=== PATIENT | male | born 1955 | race Caucasian/White ===

== ENCOUNTER 2019-05-21 23:39 | Inpatient (IN) | payer OTHER ==
[2019-05-22] MEDS ORDERED: ACETAMINOPHEN 325 MG TAB PO (00:30)
[2019-05-22] MEDS ORDERED: ONDANSETRON 4 MG INJ IV ×2 (00:30→03:30)
[2019-05-22] MEDS ORDERED: NACL 0.9% 3 ML SYG IV (00:30)
[2019-05-22] MEDS: LORAZEPAM 2 MG INJ IV (00:44)
[2019-05-22] MEDS: SOD CHLORIDE 0.9% 1,000 ML IV ×3 (00:45→16:10)
[2019-05-22 00:49] LABS: ADD MAN DIFF? NO
[2019-05-22 00:55] LABS: BASOPHIL # 0.1 10^3/ul (0.0-0.1); BASOPHILS % 0.4 % (0.0-2.0); EOSINOPHILS # 0.1 10^3/ul (0.0-0.5); EOSINOPHILS % 0.4 % (0.0-7.0); HEMATOCRIT 40.1 % (42.0-52.0); HEMOGLOBIN 12.7 g/dl (14.0-18.0); LYMPHOCYTES # 0.7 10^3/ul (0.8-2.9); LYMPHOCYTES % 6.3 % (15.0-51.0); MEAN CORPUSCULAR HEMOGLOBIN 26.2 pg (29.0-33.0); MEAN CORPUSCULAR HGB CONC 31.7 g/dl (32.0-37.0); MEAN CORPUSCULAR VOLUME 82.7 fl (82.0-101.0); MEAN PLATELET VOLUME 11.2 fl (7.4-10.4); MONOCYTE # 0.8 10^3/ul (0.3-0.9); MONOCYTES % 7.1 % (0.0-11.0); NEUTROPHIL # 9.6 10^3/ul (1.6-7.5); PLATELET COUNT 234 10^3/UL (140-415); RED BLOOD COUNT 4.85 10^6/ul (4.70-6.10); RED CELL DISTRIBUTION WIDTH 17.4 % (11.5-14.5)
[2019-05-22 00:55] LABS: WHITE BLOOD COUNT 11.3 10^3/ul (4.8-10.8)
[2019-05-22] MEDS ORDERED: IPRATROPIUM (NEB) 0.5 MG/2.5 ML AMP HHN (01:00)
[2019-05-22] MEDS ORDERED: LEVALBUTEROL (NEB) 1.25 MG/0.5 ML AMP HHN (01:00)
[2019-05-22 01:16] LABS: ALANINE AMINOTRANSFERASE 48 IU/L (13-69); ALBUMIN 3.8 g/dl (3.3-4.9); ALBUMIN/GLOBULIN RATIO 0.82; ALKALINE PHOSPHATASE 153 IU/L (42-121); ANION GAP 8 (5-13); ASPARTATE AMINO TRANSFERASE 83 IU/L (15-46); BILIRUBIN,INDIRECT 0.5 mg/dl (0-1.1); BILIRUBIN,TOTAL 0.5 mg/dl (0.2-1.3); BLOOD UREA NITROGEN 23 mg/dl (7-20); CALCIUM 9.1 mg/dl (8.4-10.2); CARBON DIOXIDE 28 mmol/L (21-31); CHLORIDE 100 mmol/L (97-110); CREATININE 0.69 mg/dl (0.61-1.24); Estimated GFR > 60 mL/min (>60); GLUCOSE 136 mg/dl (70-220); MAGNESIUM 1.6 mg/dl (1.7-2.5); POTASSIUM 4.2 mmol/L (3.5-5.1); SODIUM 136 mmol/L (135-144); TOTAL PROTEIN 8.4 g/dl (6.1-8.1)
[2019-05-22] MEDS ORDERED: ACETAMINOPHEN 650MG/20.3ML CUP (01:19)
[2019-05-22] MEDS: ACETAMINOPHEN 650MG/20.3ML CUP GTB ×2 (01:32→22:03)
[2019-05-22 01:35] LABS: HEMOGLOBIN A1C 8.4 % (0-5.9)
[2019-05-22 01:52] LABS: LACTIC ACID 1.5 mmol/L (0.5-2.0)
[2019-05-22 02:15] LABS: OCCULT BLOOD STOOL NEGATIVE (NEGATIVE)
[2019-05-22 02:26] LABS: ADD UMIC YES; UR ASCORBIC ACID NEGATIVE (NEGATIVE); UR BACTERIA FEW /HPF (NONE SEEN); UR BILIRUBIN (Dip) NEGATIVE (NEGATIVE); UR BLOOD (Dip) 1+ mg/dL (NEGATIVE); UR CLARITY SLIGHTLY CLOUDY (CLEAR); UR COLOR AMBER (YELLOW); UR GLUCOSE (Dip) NEGATIVE (NEGATIVE); UR KETONES (Dip) NEGATIVE (NEGATIVE); UR LEUKOCYTE ESTERASE (Dip) 3+ Leu/ul (NEGATIVE); UR NITRITE (Dip) NEGATIVE (NEGATIVE); UR RBC 27 /HPF (0-5); UR SPECIFIC GRAVITY (Dip) 1.025 (1.003-1.030); UR TOTAL PROTEIN (Dip) 1+ mg/dl (NEGATIVE); UR UROBILINOGEN (Dip) 2+ mg/dL (NEGATIVE); UR WBC 152 /HPF (0-5)
[2019-05-22] MEDS ORDERED: GLUCOSE GEL 15 GRAM TUBE BUCCAL (02:30)
[2019-05-22] MEDS ORDERED: VANCOMYCIN IV PER PHARMACY XX (02:30)
[2019-05-22] MEDS ORDERED: GLUCOSE GEL 15 GRAM TUBE PO ×2 (02:30)
[2019-05-22] MEDS ORDERED: GLUCAGON 1 MG INJ IM (02:30)
[2019-05-22] MEDS ORDERED: DEXTROSE 50% 50 ML SYRINGE IV ×2 (02:30)
[2019-05-22] MEDS: IBUPROFEN 600 MG TAB GTB (02:32)
[2019-05-22 02:54] LABS: AADO2 Arterial 165.1 mmHg (7.0-24.0); Allen Test ACCEPTAB; Arterial Base Excess 0.2 mmol/L (-3.0-3); Arterial Blood Gas Oxygen Sat 96.7 mmHG (95.0-98.0); Arterial COHb 0.4 % (0.0-3.0); Arterial Fraction of Oxyhgb 95.9 % (93.0-99.0); Arterial HCO3 22.8 mmol/L (22.0-26.0); Arterial MetHb 0.4 % (0.0-1.5); Arterial pCO2 31.5 mmhg (35-45); MODE TRACH COLLAR; Site Right Radial
[2019-05-22] MEDS: PIPER-TAZO 3.375 GM IV (PMX) 100 ML IVPB ×5 (03:25→17:05)
[2019-05-22 04:01] LABS: VALPROATE 36 ug/ml (50-100)
[2019-05-22] MEDS: INSULIN ASPART [NOVOLOG] 3 ML PEN SC ×5 (05:00→21:00)
[2019-05-22] MEDS: MAGNESIUM SULFATE 3 GM in DEXTROSE 5% 100 ML IVPB (05:57)
[2019-05-22] MEDS ORDERED: INSULIN ASPART [NOVOLOG] 3 ML PEN SC (07:35)
[2019-05-22] MEDS: METOPROLOL 25 MG TAB GTB ×3 (07:57→22:01)
[2019-05-22] MEDS: VALPROIC ACID LIQUID CUP 250 MG/5 ML CUP GTB ×3 (08:12→22:00)
[2019-05-22] MEDS: ACETAMINOPHEN 325 MG TAB GTB ×3 (08:12→16:33)
[2019-05-22] MEDS: VANCOMYCIN 1.5 GM/NS 250 ML 250 ML IVPB (08:54)
[2019-05-22] MEDS: BENZTROPINE 1 MG TAB GTB ×2 (08:54→21:58)
[2019-05-22 08:56] LABS: LACTIC ACID 1.6 mmol/L (0.5-2.0)
[2019-05-22] MEDS: ENOXAPARIN 40 MG/0.4 ML SYG SC (09:14)
[2019-05-22] MEDS: FUROSEMIDE 40 MG INJ IV (12:34)
[2019-05-22] MEDS: CLOTRIMAZOLE 1% 30 GM CR TOP ×2 (12:43→22:00)
[2019-05-22] MEDS: MAGNESIUM SULFATE 1 GM/D5W 100 ML IVPB (14:54)
[2019-05-22] MEDS ORDERED: VANCOMYCIN 1 GM 250 ML IVPB (15:00)
[2019-05-22] MEDS: QUETIAPINE 25 MG TAB PO (21:59)
[2019-05-22] MEDS: VANCOMYCIN 1 GM 250 ML IVPB (21:59)
[2019-05-22] MEDS ORDERED: SPECIAL NON-STANDARD MEDICATION IV (22:00)
[2019-05-22] MEDS: SODIUM CHLORIDE IVPB (23:21)
[2019-05-22] MEDS: FLUCONAZOLE IVPB (23:21)
[2019-05-23] MEDS: PIPER-TAZO 3.375 GM IV (PMX) 100 ML IVPB ×3 (00:49→11:57)
[2019-05-23] MEDS: INSULIN ASPART [NOVOLOG] 3 ML PEN SC ×6 (00:57→21:34)
[2019-05-23] MEDS: ACCU-CHEK XX (02:00)
[2019-05-23] MEDS: SOD CHLORIDE 0.9% 1,000 ML IV ×2 (04:43→21:22)
[2019-05-23] MEDS: VALPROIC ACID LIQUID CUP 250 MG/5 ML CUP GTB ×3 (05:43→21:24)
[2019-05-23] MEDS: METOPROLOL 25 MG TAB GTB ×3 (05:44→21:23)
[2019-05-23 06:00] LABS: ADD MAN DIFF? NO
[2019-05-23 06:08] LABS: WHITE BLOOD COUNT 14.1 10^3/ul (4.8-10.8)
[2019-05-23 06:08] LABS: BASOPHILS % 0.2 % (0.0-2.0); EOSINOPHILS # 0.1 10^3/ul (0.0-0.5); HEMATOCRIT 37.1 % (42.0-52.0); HEMOGLOBIN 11.5 g/dl (14.0-18.0); LYMPHOCYTES # 0.8 10^3/ul (0.8-2.9); LYMPHOCYTES % 5.8 % (15.0-51.0); MEAN CORPUSCULAR HEMOGLOBIN 25.7 pg (29.0-33.0); MEAN PLATELET VOLUME 11.1 fl (7.4-10.4); MONOCYTES % 7.4 % (0.0-11.0); NEUTROPHIL # 11.9 10^3/ul (1.6-7.5); NEUTROPHILS % 84.7 % (39.0-77.0); PLATELET COUNT 224 10^3/UL (140-415); RED BLOOD COUNT 4.47 10^6/ul (4.70-6.10)
[2019-05-23 06:24] LABS: INR 1.22; PROTIME 15.5 Sec (11.9-14.9); PT RATIO 1.2
[2019-05-23 06:25] LABS: PARTIAL THROMBOPLASTIN TIME 38.2 Sec (23.0-35.0)
[2019-05-23 06:45] LABS: ALANINE AMINOTRANSFERASE 47 IU/L (13-69); ALBUMIN 2.8 g/dl (3.3-4.9); ALBUMIN/GLOBULIN RATIO 0.71; ALKALINE PHOSPHATASE 130 IU/L (42-121); ANION GAP 6 (5-13); ASPARTATE AMINO TRANSFERASE 59 IU/L (15-46); BILIRUBIN,INDIRECT 0.6 mg/dl (0-1.1); BILIRUBIN,TOTAL 0.6 mg/dl (0.2-1.3); BLOOD UREA NITROGEN 26 mg/dl (7-20); CALCIUM 8.4 mg/dl (8.4-10.2); CARBON DIOXIDE 30 mmol/L (21-31); CHLORIDE 105 mmol/L (97-110); CREATININE 0.91 mg/dl (0.61-1.24); Estimated GFR > 60 mL/min (>60); GLUCOSE 184 mg/dl (70-220); MAGNESIUM 2.4 mg/dl (1.7-2.5); POTASSIUM 3.5 mmol/L (3.5-5.1); SODIUM 141 mmol/L (135-144); TOTAL PROTEIN 6.7 g/dl (6.1-8.1)
[2019-05-23] MEDS: HALOPERIDOL 5 MG INJ IM (08:00)
[2019-05-23] MEDS: QUETIAPINE 25 MG TAB PO ×2 (08:58→21:23)
[2019-05-23] MEDS: BENZTROPINE 1 MG TAB GTB ×2 (08:58→21:23)
[2019-05-23] MEDS: ENOXAPARIN 40 MG/0.4 ML SYG SC (09:00)
[2019-05-23] MEDS: FLUCONAZOLE 400 MG/NS (PMX) 200 ML IVPB (09:01)
[2019-05-23] MEDS: VANCOMYCIN 1 GM 250 ML IVPB (09:01)
[2019-05-23] MEDS: CLOTRIMAZOLE 1% 30 GM CR TOP ×2 (09:02→21:24)
[2019-05-23] MEDS: SOD CHLORIDE 0.9% 250 ML IV (10:54)
[2019-05-23] MEDS: ACETAMINOPHEN 650MG/20.3ML CUP GTB (13:20)
[2019-05-24] MEDS: INSULIN ASPART [NOVOLOG] 3 ML PEN SC ×6 (01:19→20:45)
[2019-05-24] MEDS: ACCU-CHEK XX (02:00)
[2019-05-24] MEDS: VALPROIC ACID LIQUID CUP 250 MG/5 ML CUP GTB ×3 (05:25→21:15)
[2019-05-24] MEDS: METOPROLOL 25 MG TAB GTB ×3 (05:25→21:18)
[2019-05-24 05:43] LABS: ADD MAN DIFF? NO
[2019-05-24 05:50] LABS: BASOPHILS % 0.2 % (0.0-2.0); EOSINOPHILS # 0.9 10^3/ul (0.0-0.5); EOSINOPHILS % 8.9 % (0.0-7.0); HEMATOCRIT 32.7 % (42.0-52.0); HEMOGLOBIN 10.1 g/dl (14.0-18.0); LYMPHOCYTES # 0.9 10^3/ul (0.8-2.9); MEAN CORPUSCULAR HEMOGLOBIN 26.2 pg (29.0-33.0); MEAN CORPUSCULAR HGB CONC 30.9 g/dl (32.0-37.0); MEAN CORPUSCULAR VOLUME 84.7 fl (82.0-101.0); MEAN PLATELET VOLUME 11.4 fl (7.4-10.4); MONOCYTE # 0.9 10^3/ul (0.3-0.9); MONOCYTES % 8.5 % (0.0-11.0); NEUTROPHIL # 7.4 10^3/ul (1.6-7.5); NEUTROPHILS % 72.8 % (39.0-77.0); PLATELET COUNT 193 10^3/UL (140-415); RED BLOOD COUNT 3.86 10^6/ul (4.70-6.10); RED CELL DISTRIBUTION WIDTH 18.3 % (11.5-14.5)
[2019-05-24 05:50] LABS: WHITE BLOOD COUNT 10.1 10^3/ul (4.8-10.8)
[2019-05-24 06:10] LABS: ANION GAP 5 (5-13); BILIRUBIN,TOTAL 0.2 mg/dl (0.2-1.3); Estimated GFR > 60 mL/min (>60)
[2019-05-24 06:12] LABS: ALANINE AMINOTRANSFERASE 43 IU/L (13-69); ALBUMIN 2.9 g/dl (3.3-4.9); ALKALINE PHOSPHATASE 156 IU/L (42-121); ASPARTATE AMINO TRANSFERASE 55 IU/L (15-46); BILIRUBIN,INDIRECT 0.2 mg/dl (0-1.1); BLOOD UREA NITROGEN 20 mg/dl (7-20); CALCIUM 8.7 mg/dl (8.4-10.2); CARBON DIOXIDE 31 mmol/L (21-31); CHLORIDE 107 mmol/L (97-110); CREATININE 0.67 mg/dl (0.61-1.24); GLUCOSE 160 mg/dl (70-220); POTASSIUM 3.6 mmol/L (3.5-5.1); SODIUM 143 mmol/L (135-144); TOTAL PROTEIN 6.5 g/dl (6.1-8.1)
[2019-05-24] MEDS: BENZTROPINE 1 MG TAB GTB ×2 (08:50→20:47)
[2019-05-24] MEDS: QUETIAPINE 25 MG TAB PO ×2 (08:50→20:47)
[2019-05-24] MEDS: FLUCONAZOLE 400 MG/NS (PMX) 200 ML IVPB (08:51)
[2019-05-24] MEDS: ENOXAPARIN 40 MG/0.4 ML SYG SC (08:53)
[2019-05-24] MEDS: CLOTRIMAZOLE 1% 30 GM CR TOP ×2 (08:54→20:48)
[2019-05-24] MEDS: SOD CHLORIDE 0.9% 1,000 ML IV ×2 (08:55→17:09)
[2019-05-24] MEDS: ACETAMINOPHEN 650MG/20.3ML CUP GTB (14:14)
[2019-05-24] MEDS: ACETAMINOPHEN 325 MG TAB GTB (20:46)
[2019-05-24] MEDS: LORAZEPAM 2 MG INJ IV (21:17)
[2019-05-25] MEDS: INSULIN ASPART [NOVOLOG] 3 ML PEN SC ×6 (01:27→20:43)
[2019-05-25] MEDS: ACCU-CHEK XX (02:00)
[2019-05-25 05:34] LABS: ADD MAN DIFF? NO
[2019-05-25] MEDS: VALPROIC ACID LIQUID CUP 250 MG/5 ML CUP GTB ×3 (05:37→22:16)
[2019-05-25] MEDS: METOPROLOL 25 MG TAB GTB ×3 (05:38→22:16)
[2019-05-25 05:57] LABS: BASOPHILS % 0.2 % (0.0-2.0); EOSINOPHILS # 0.4 10^3/ul (0.0-0.5); HEMATOCRIT 32.7 % (42.0-52.0); LYMPHOCYTES # 0.9 10^3/ul (0.8-2.9); LYMPHOCYTES % 11.2 % (15.0-51.0); MEAN CORPUSCULAR HEMOGLOBIN 25.7 pg (29.0-33.0); MEAN CORPUSCULAR HGB CONC 30.6 g/dl (32.0-37.0); MEAN CORPUSCULAR VOLUME 84.1 fl (82.0-101.0); MEAN PLATELET VOLUME 12.3 fl (7.4-10.4); MONOCYTE # 0.7 10^3/ul (0.3-0.9); MONOCYTES % 8.7 % (0.0-11.0); NEUTROPHIL # 6.2 10^3/ul (1.6-7.5); NEUTROPHILS % 74.4 % (39.0-77.0); PLATELET COUNT 202 10^3/UL (140-415); RED BLOOD COUNT 3.89 10^6/ul (4.70-6.10); RED CELL DISTRIBUTION WIDTH 18.1 % (11.5-14.5)
[2019-05-25 05:57] LABS: WHITE BLOOD COUNT 8.3 10^3/ul (4.8-10.8)
[2019-05-25 06:14] LABS: ALANINE AMINOTRANSFERASE 65 IU/L (13-69); ALBUMIN/GLOBULIN RATIO 0.83; ALKALINE PHOSPHATASE 348 IU/L (42-121); ANION GAP 7 (5-13); ASPARTATE AMINO TRANSFERASE 103 IU/L (15-46); BILIRUBIN,INDIRECT 0.3 mg/dl (0-1.1); BILIRUBIN,TOTAL 0.4 mg/dl (0.2-1.3); BLOOD UREA NITROGEN 12 mg/dl (7-20); CALCIUM 8.8 mg/dl (8.4-10.2); CARBON DIOXIDE 33 mmol/L (21-31); CHLORIDE 104 mmol/L (97-110); CREATININE 0.58 mg/dl (0.61-1.24); Estimated GFR > 60 mL/min (>60); GLUCOSE 146 mg/dl (70-220); POTASSIUM 3.4 mmol/L (3.5-5.1); SODIUM 144 mmol/L (135-144); TOTAL PROTEIN 6.6 g/dl (6.1-8.1)
[2019-05-25] MEDS: ACETAMINOPHEN 650MG/20.3ML CUP GTB ×2 (08:49→20:13)
[2019-05-25] MEDS: QUETIAPINE 25 MG TAB PO (08:49)
[2019-05-25] MEDS: BENZTROPINE 1 MG TAB GTB ×2 (08:49→20:10)
[2019-05-25] MEDS: ENOXAPARIN 40 MG/0.4 ML SYG SC (08:57)
[2019-05-25] MEDS: CLOTRIMAZOLE 1% 30 GM CR TOP ×2 (09:01→20:12)
[2019-05-25] MEDS: FLUCONAZOLE 400 MG/NS (PMX) 200 ML IVPB (09:01)
[2019-05-25] MEDS: POTASSIUM CHLORIDE 20 MEQ POWDER FOR ORAL SOLN GTB (15:24)
[2019-05-25] MEDS ORDERED: VANCOMYCIN IV PER PHARMACY XX (15:30)
[2019-05-25] MEDS: VANCOMYCIN 1.5 GM/NS 250 ML 250 ML IVPB (17:25)
[2019-05-25] MEDS: CEFEPIME 1GM/50 ML (PMX) 50 ML IVPB (20:11)
[2019-05-25] MEDS: QUETIAPINE 25 MG TAB PEG (20:11)
[2019-05-26] MEDS: INSULIN ASPART [NOVOLOG] 3 ML PEN SC ×6 (01:29→20:48)
[2019-05-26] MEDS: ACCU-CHEK XX (01:30)
[2019-05-26] MEDS: VALPROIC ACID LIQUID CUP 250 MG/5 ML CUP GTB ×3 (05:23→21:31)
[2019-05-26] MEDS: VANCOMYCIN 1 GM 250 ML IVPB ×2 (05:24→17:24)
[2019-05-26] MEDS: METOPROLOL 25 MG TAB GTB ×2 (05:24→20:30)
[2019-05-26 06:34] LABS: ADD MAN DIFF? NO
[2019-05-26 06:54] LABS: BASOPHILS % 0.3 % (0.0-2.0); EOSINOPHILS # 0.1 10^3/ul (0.0-0.5); EOSINOPHILS % 0.9 % (0.0-7.0); HEMATOCRIT 36.1 % (42.0-52.0); LYMPHOCYTES # 1.4 10^3/ul (0.8-2.9); LYMPHOCYTES % 10.8 % (15.0-51.0); MEAN CORPUSCULAR HEMOGLOBIN 25.3 pg (29.0-33.0); MEAN CORPUSCULAR HGB CONC 30.5 g/dl (32.0-37.0); MEAN CORPUSCULAR VOLUME 83.2 fl (82.0-101.0); MEAN PLATELET VOLUME 12.6 fl (7.4-10.4); MONOCYTE # 1.1 10^3/ul (0.3-0.9); MONOCYTES % 8.4 % (0.0-11.0); NEUTROPHIL # 10.3 10^3/ul (1.6-7.5); NEUTROPHILS % 78.5 % (39.0-77.0); PLATELET COUNT 181 10^3/UL (140-415); POSITIVE DIFF @See below; RED BLOOD COUNT 4.34 10^6/ul (4.70-6.10); RED CELL DISTRIBUTION WIDTH 18.4 % (11.5-14.5)
[2019-05-26 06:54] LABS: WHITE BLOOD COUNT 13.1 10^3/ul (4.8-10.8)
[2019-05-26 07:15] LABS: ALANINE AMINOTRANSFERASE 83 IU/L (13-69); ALBUMIN 3.4 g/dl (3.3-4.9); ALKALINE PHOSPHATASE 438 IU/L (42-121); ANION GAP 8 (5-13); ASPARTATE AMINO TRANSFERASE 102 IU/L (15-46); BILIRUBIN,INDIRECT 0.4 mg/dl (0-1.1); BILIRUBIN,TOTAL 0.6 mg/dl (0.2-1.3); BLOOD UREA NITROGEN 12 mg/dl (7-20); CALCIUM 9.5 mg/dl (8.4-10.2); CARBON DIOXIDE 34 mmol/L (21-31); CHLORIDE 105 mmol/L (97-110); CREATININE 0.68 mg/dl (0.61-1.24); Estimated GFR > 60 mL/min (>60); GLUCOSE 225 mg/dl (70-220); POTASSIUM 3.4 mmol/L (3.5-5.1); SODIUM 147 mmol/L (135-144); TOTAL PROTEIN 7.6 g/dl (6.1-8.1)
[2019-05-26] MEDS: BENZTROPINE 1 MG TAB GTB ×2 (09:51→20:31)
[2019-05-26] MEDS: QUETIAPINE 25 MG TAB PEG ×2 (09:51→20:31)
[2019-05-26] MEDS: CEFEPIME 1GM/50 ML (PMX) 50 ML IVPB ×2 (09:52→20:29)
[2019-05-26] MEDS: FLUCONAZOLE 400 MG/NS (PMX) 200 ML IVPB (09:52)
[2019-05-26] MEDS: ENOXAPARIN 40 MG/0.4 ML SYG SC (10:08)
[2019-05-26] MEDS: ACETAMINOPHEN 650MG/20.3ML CUP GTB ×2 (10:13→20:29)
[2019-05-26 11:37] LABS: LACTIC ACID 1.5 mmol/L (0.5-2.0)
[2019-05-26] MEDS: LOPERAMIDE HCL 1 MG/5 ML LIQUID (10 ML UD CUP) GTB (15:28)
[2019-05-26] MEDS: FOLIC ACID 1 MG TAB GTB (15:28)
[2019-05-26] MEDS: CLOTRIMAZOLE 1% 30 GM CR TOP ×2 (15:28→20:32)
[2019-05-26] MEDS: THIAMINE 100 MG TAB GTB (15:28)
[2019-05-26] MEDS: CASPOFUNGIN 70 MG in SOD CHLORIDE 0.9% 250 ML IVPB (16:14)
[2019-05-26 17:17] LABS: ADD UMIC YES; UR ASCORBIC ACID 40 mg/dL (NEGATIVE); UR BILIRUBIN (Dip) NEGATIVE (NEGATIVE); UR BLOOD (Dip) 1+ mg/dL (NEGATIVE); UR CLARITY CLEAR (CLEAR); UR COLOR AMBER (YELLOW); UR GLUCOSE (Dip) 2+ mg/dL (NEGATIVE); UR KETONES (Dip) NEGATIVE (NEGATIVE); UR LEUKOCYTE ESTERASE (Dip) 1+ Leu/ul (NEGATIVE); UR NITRITE (Dip) NEGATIVE (NEGATIVE); UR RBC 5 /HPF (0-5); UR SPECIFIC GRAVITY (Dip) 1.014 (1.003-1.030); UR TOTAL PROTEIN (Dip) 1+ mg/dl (NEGATIVE); UR UROBILINOGEN (Dip) 2+ mg/dL (NEGATIVE); UR WBC 16 /HPF (0-5)
[2019-05-27] MEDS: INSULIN ASPART [NOVOLOG] 3 ML PEN SC ×6 (01:35→21:46)
[2019-05-27] MEDS: ACCU-CHEK XX (02:33)
[2019-05-27] MEDS: VALPROIC ACID LIQUID CUP 250 MG/5 ML CUP GTB ×3 (05:34→21:25)
[2019-05-27 05:53] LABS: ADD MAN DIFF? NO
[2019-05-27 05:58] LABS: WHITE BLOOD COUNT 11.7 10^3/ul (4.8-10.8)
[2019-05-27 05:58] LABS: ABNORMAL IP MESSAGE 1; BASOPHILS % 0.3 % (0.0-2.0); EOSINOPHILS # 0.2 10^3/ul (0.0-0.5); EOSINOPHILS % 1.6 % (0.0-7.0); HEMATOCRIT 36.2 % (42.0-52.0); HEMOGLOBIN 10.9 g/dl (14.0-18.0); LYMPHOCYTES # 1.4 10^3/ul (0.8-2.9); LYMPHOCYTES % 11.6 % (15.0-51.0); MEAN CORPUSCULAR HEMOGLOBIN 25.5 pg (29.0-33.0); MEAN CORPUSCULAR HGB CONC 30.1 g/dl (32.0-37.0); MEAN CORPUSCULAR VOLUME 84.8 fl (82.0-101.0); MEAN PLATELET VOLUME 13.1 fl (7.4-10.4); MONOCYTE # 0.8 10^3/ul (0.3-0.9); NEUTROPHIL # 9.3 10^3/ul (1.6-7.5); NEUTROPHILS % 78.9 % (39.0-77.0); PLATELET COUNT 187 10^3/UL (140-415); POSITIVE DIFF @See below; RED BLOOD COUNT 4.27 10^6/ul (4.70-6.10); RED CELL DISTRIBUTION WIDTH 18.9 % (11.5-14.5)
[2019-05-27 06:24] LABS: ANION GAP 6 (5-13); BLOOD UREA NITROGEN 18 mg/dl (7-20); CARBON DIOXIDE 32 mmol/L (21-31); CHLORIDE 109 mmol/L (97-110); Estimated GFR > 60 mL/min (>60); GLUCOSE 201 mg/dl (70-220); POTASSIUM 4.3 mmol/L (3.5-5.1); SODIUM 147 mmol/L (135-144)
[2019-05-27 06:48] LABS: VANCOMYCIN,TROUGH 8.2 ug/ml (10.0-20.0)
[2019-05-27] MEDS: VANCOMYCIN 1 GM 250 ML IVPB (06:58)
[2019-05-27] MEDS: BENZTROPINE 1 MG TAB GTB ×2 (08:28→21:25)
[2019-05-27] MEDS: ACETAMINOPHEN 650MG/20.3ML CUP GTB (08:30)
[2019-05-27] MEDS: THIAMINE 100 MG TAB GTB (08:31)
[2019-05-27] MEDS: CLOTRIMAZOLE 1% 30 GM CR TOP ×2 (08:31→21:32)
[2019-05-27] MEDS: QUETIAPINE 25 MG TAB PEG ×2 (08:31→21:26)
[2019-05-27] MEDS: CEFEPIME 1GM/50 ML (PMX) 50 ML IVPB ×2 (08:31→21:25)
[2019-05-27] MEDS: METOPROLOL 25 MG TAB GTB ×2 (08:31→21:26)
[2019-05-27] MEDS: FOLIC ACID 1 MG TAB GTB (08:31)
[2019-05-27] MEDS: ENOXAPARIN 40 MG/0.4 ML SYG SC (08:54)
[2019-05-27 16:02] LABS: VITAMIN B1 (THIAMINE) 216 nmol/L (78-185)
[2019-05-27] MEDS: CASPOFUNGIN 50 MG in SOD CHLORIDE 0.9% 250 ML IVPB (16:42)
[2019-05-27] MEDS: metroNIDAZOLE 500 MG TAB PO ×2 (16:42→21:26)
[2019-05-27] MEDS: VANCOMYCIN 1.25 GM/NS 250 ML 250 ML IVPB (17:53)
[2019-05-28] MEDS: INSULIN ASPART [NOVOLOG] 3 ML PEN SC ×6 (02:00→21:05)
[2019-05-28] MEDS: ACCU-CHEK XX (02:00)
[2019-05-28] MEDS: metroNIDAZOLE 500 MG TAB PO ×3 (05:47→21:01)
[2019-05-28] MEDS: VALPROIC ACID LIQUID CUP 250 MG/5 ML CUP GTB ×3 (05:47→21:01)
[2019-05-28] MEDS: VANCOMYCIN 1.25 GM/NS 250 ML 250 ML IVPB ×2 (05:47→17:51)
[2019-05-28 06:49] LABS: ADD MAN DIFF? NO
[2019-05-28 06:54] LABS: WHITE BLOOD COUNT 11.9 10^3/ul (4.8-10.8)
[2019-05-28 06:54] LABS: BASOPHILS % 0.3 % (0.0-2.0); EOSINOPHILS # 0.5 10^3/ul (0.0-0.5); EOSINOPHILS % 4.5 % (0.0-7.0); HEMATOCRIT 35.3 % (42.0-52.0); HEMOGLOBIN 10.6 g/dl (14.0-18.0); LYMPHOCYTES # 1.4 10^3/ul (0.8-2.9); LYMPHOCYTES % 11.5 % (15.0-51.0); MEAN CORPUSCULAR HEMOGLOBIN 25.7 pg (29.0-33.0); MEAN CORPUSCULAR VOLUME 85.7 fl (82.0-101.0); MEAN PLATELET VOLUME 12.4 fl (7.4-10.4); MONOCYTE # 0.9 10^3/ul (0.3-0.9); MONOCYTES % 7.3 % (0.0-11.0); NEUTROPHILS % 75.9 % (39.0-77.0); PLATELET COUNT 352 10^3/UL (140-415); RED BLOOD COUNT 4.12 10^6/ul (4.70-6.10); RED CELL DISTRIBUTION WIDTH 18.9 % (11.5-14.5)
[2019-05-28 07:26] LABS: ANION GAP 5 (5-13); BLOOD UREA NITROGEN 22 mg/dl (7-20); CALCIUM 9.4 mg/dl (8.4-10.2); CARBON DIOXIDE 36 mmol/L (21-31); CHLORIDE 112 mmol/L (97-110); CREATININE 1.05 mg/dl (0.61-1.24); Estimated GFR > 60 mL/min (>60); GLUCOSE 271 mg/dl (70-220); SODIUM 153 mmol/L (135-144)
[2019-05-28] MEDS: CEFEPIME 1GM/50 ML (PMX) 50 ML IVPB ×2 (09:14→20:49)
[2019-05-28] MEDS: FOLIC ACID 1 MG TAB GTB (09:15)
[2019-05-28] MEDS: THIAMINE 100 MG TAB GTB (09:15)
[2019-05-28] MEDS: POTASSIUM CHLORIDE 20 MEQ POWDER FOR ORAL SOLN GTB ×2 (09:15→14:26)
[2019-05-28] MEDS: BENZTROPINE 1 MG TAB GTB ×2 (09:15→20:46)
[2019-05-28] MEDS: metFORMIN 500 MG TAB GTB ×2 (09:15→20:48)
[2019-05-28] MEDS: QUETIAPINE 25 MG TAB PEG ×2 (09:15→20:46)
[2019-05-28] MEDS: CLOTRIMAZOLE 1% 30 GM CR TOP ×2 (09:16→20:48)
[2019-05-28] MEDS: METOPROLOL 25 MG TAB GTB ×2 (09:16→20:46)
[2019-05-28] MEDS: ENOXAPARIN 40 MG/0.4 ML SYG SC (10:09)
[2019-05-28] MEDS ORDERED: POTASSIUM CHLORIDE (SR) 20 MEQ TAB PO (13:23)
[2019-05-28] MEDS: LORAZEPAM 2 MG INJ IV (14:23)
[2019-05-28] MEDS: CASPOFUNGIN 50 MG in SOD CHLORIDE 0.9% 250 ML IVPB (15:48)
[2019-05-29] MEDS: LORAZEPAM 2 MG INJ IV ×5 (00:09→23:13)
[2019-05-29] MEDS: INSULIN ASPART [NOVOLOG] 3 ML PEN SC ×6 (00:51→20:59)
[2019-05-29] MEDS: ACCU-CHEK XX (01:01)
[2019-05-29] MEDS: VANCOMYCIN 1.25 GM/NS 250 ML 250 ML IVPB (05:14)
[2019-05-29] MEDS: VALPROIC ACID LIQUID CUP 250 MG/5 ML CUP GTB ×3 (05:17→21:01)
[2019-05-29] MEDS: metroNIDAZOLE 500 MG TAB PO ×3 (05:20→21:01)
[2019-05-29 05:39] LABS: ADD MAN DIFF? NO
[2019-05-29 05:46] LABS: BASOPHILS % 0.4 % (0.0-2.0); EOSINOPHILS # 0.4 10^3/ul (0.0-0.5); EOSINOPHILS % 3.4 % (0.0-7.0); HEMOGLOBIN 10.4 g/dl (14.0-18.0); LYMPHOCYTES # 1.9 10^3/ul (0.8-2.9); LYMPHOCYTES % 17.1 % (15.0-51.0); MEAN CORPUSCULAR HEMOGLOBIN 25.9 pg (29.0-33.0); MEAN CORPUSCULAR HGB CONC 29.7 g/dl (32.0-37.0); MEAN CORPUSCULAR VOLUME 87.3 fl (82.0-101.0); MEAN PLATELET VOLUME 12.1 fl (7.4-10.4); MONOCYTES % 8.8 % (0.0-11.0); NEUTROPHIL # 7.7 10^3/ul (1.6-7.5); NEUTROPHILS % 69.3 % (39.0-77.0); PLATELET COUNT 466 10^3/UL (140-415); RED BLOOD COUNT 4.01 10^6/ul (4.70-6.10); RED CELL DISTRIBUTION WIDTH 18.6 % (11.5-14.5)
[2019-05-29 05:46] LABS: WHITE BLOOD COUNT 11.1 10^3/ul (4.8-10.8)
[2019-05-29 06:29] LABS: ANION GAP 4 (5-13); BLOOD UREA NITROGEN 30 mg/dl (7-20); CALCIUM 10.2 mg/dl (8.4-10.2); CARBON DIOXIDE 38 mmol/L (21-31); CHLORIDE 121 mmol/L (97-110); CREATININE 1.41 mg/dl (0.61-1.24); Estimated GFR 51 mL/min (>60); GLUCOSE 303 mg/dl (70-220); MAGNESIUM 2.3 mg/dl (1.7-2.5); POTASSIUM 3.1 mmol/L (3.5-5.1)
[2019-05-29 06:31] LABS: VANCOMYCIN,TROUGH 16.9 ug/ml (10.0-20.0)
[2019-05-29 06:59] LABS: SODIUM 163 mmol/L (135-144)
[2019-05-29] MEDS: DEXTROSE 5% 1,000 ML IV (08:13)
[2019-05-29] MEDS: QUETIAPINE 25 MG TAB PEG ×2 (08:14→20:50)
[2019-05-29] MEDS: metFORMIN 500 MG TAB GTB ×2 (08:14→20:49)
[2019-05-29] MEDS: BENZTROPINE 1 MG TAB GTB ×2 (08:14→20:49)
[2019-05-29] MEDS: METOPROLOL 25 MG TAB GTB (08:16)
[2019-05-29] MEDS: FOLIC ACID 1 MG TAB GTB (08:17)
[2019-05-29] MEDS: CEFEPIME 1GM/50 ML (PMX) 50 ML IVPB (08:17)
[2019-05-29] MEDS: THIAMINE 100 MG TAB GTB (08:17)
[2019-05-29] MEDS: CLOTRIMAZOLE 1% 30 GM CR TOP ×2 (08:18→20:51)
[2019-05-29] MEDS: ENOXAPARIN 40 MG/0.4 ML SYG SC (08:25)
[2019-05-29] MEDS: ACETAMINOPHEN 325 MG TAB GTB (08:41)
[2019-05-29] MEDS: CASPOFUNGIN 50 MG in SOD CHLORIDE 0.9% 250 ML IVPB (15:49)
[2019-05-29] MEDS: POTASSIUM CHLORIDE (SR) 20 MEQ TAB PO (15:51)
[2019-05-29] MEDS: METOPROLOL 50 MG TAB GTB ×2 (17:55→23:26)
[2019-05-29] MEDS: ACETAMINOPHEN 650MG/20.3ML CUP GTB (20:38)
[2019-05-29] MEDS: INSULIN GLARGINE [LANTus] (100 UNITS/ML) SYG SC (20:59)
[2019-05-29] MEDS ORDERED: VANCOMYCIN 750 MG (PMX) 250 ML IVPB (22:00)
[2019-05-30] MEDS: INSULIN ASPART [NOVOLOG] 3 ML PEN SC ×6 (01:19→21:00)
[2019-05-30] MEDS: ACCU-CHEK XX (02:00)
[2019-05-30] MEDS: DEXTROSE 5% 1,000 ML IV (03:30)
[2019-05-30] MEDS: metroNIDAZOLE 500 MG TAB PO ×3 (05:14→22:05)
[2019-05-30] MEDS: VALPROIC ACID LIQUID CUP 250 MG/5 ML CUP GTB ×3 (05:14→22:04)
[2019-05-30] MEDS: ACETAMINOPHEN 650MG/20.3ML CUP GTB (05:15)
[2019-05-30] MEDS: ENOXAPARIN 100 MG/ML SYG SC (05:26)
[2019-05-30 06:12] LABS: ADD MAN DIFF? NO
[2019-05-30 06:22] LABS: BASOPHIL # 0.1 10^3/ul (0.0-0.1); BASOPHILS % 0.4 % (0.0-2.0); EOSINOPHILS # 0.4 10^3/ul (0.0-0.5); EOSINOPHILS % 3.6 % (0.0-7.0); HEMATOCRIT 35.3 % (42.0-52.0); HEMOGLOBIN 10.4 g/dl (14.0-18.0); LYMPHOCYTES % 15.9 % (15.0-51.0); MEAN CORPUSCULAR HGB CONC 29.5 g/dl (32.0-37.0); MEAN CORPUSCULAR VOLUME 88.3 fl (82.0-101.0); MEAN PLATELET VOLUME 12.1 fl (7.4-10.4); MONOCYTES % 7.7 % (0.0-11.0); NEUTROPHIL # 8.9 10^3/ul (1.6-7.5); NEUTROPHILS % 71.8 % (39.0-77.0); PLATELET COUNT 514 10^3/UL (140-415); RED CELL DISTRIBUTION WIDTH 18.9 % (11.5-14.5)
[2019-05-30 06:22] LABS: WHITE BLOOD COUNT 12.4 10^3/ul (4.8-10.8)
[2019-05-30 06:55] LABS: ANION GAP 5 (5-13); BLOOD UREA NITROGEN 38 mg/dl (7-20); CALCIUM 10.3 mg/dl (8.4-10.2); CARBON DIOXIDE 38 mmol/L (21-31); CHLORIDE 123 mmol/L (97-110); CREATININE 1.68 mg/dl (0.61-1.24); Estimated GFR 42 mL/min (>60); GLUCOSE 244 mg/dl (70-220); POTASSIUM 3.4 mmol/L (3.5-5.1)
[2019-05-30 07:04] LABS: SODIUM 166 mmol/L (135-144)
[2019-05-30] MEDS: THIAMINE 100 MG TAB GTB (09:42)
[2019-05-30] MEDS: QUETIAPINE 25 MG TAB PEG ×2 (09:42→22:01)
[2019-05-30] MEDS: METOPROLOL 50 MG TAB GTB ×3 (09:42→22:00)
[2019-05-30] MEDS: FOLIC ACID 1 MG TAB GTB (09:42)
[2019-05-30] MEDS: BENZTROPINE 1 MG TAB GTB ×2 (09:43→22:08)
[2019-05-30] MEDS: DOXYCYCLINE 100 MG TAB PO ×2 (09:51→22:01)
[2019-05-30] MEDS: metFORMIN 500 MG TAB GTB ×2 (09:51→21:59)
[2019-05-30] MEDS: CLOTRIMAZOLE 1% 30 GM CR TOP ×2 (09:52→22:04)
[2019-05-30] MEDS: SOD CHLORIDE 0.45% 1,000 ML IV (14:37)
[2019-05-30 15:17] LABS: ANION GAP 4 (5-13); BLOOD UREA NITROGEN 40 mg/dl (7-20); CALCIUM 10.2 mg/dl (8.4-10.2); CARBON DIOXIDE 37 mmol/L (21-31); CHLORIDE 124 mmol/L (97-110); CREATININE 1.85 mg/dl (0.61-1.24); Estimated GFR 37 mL/min (>60); GLUCOSE 205 mg/dl (70-220); POTASSIUM 3.4 mmol/L (3.5-5.1)
[2019-05-30 15:21] LABS: SODIUM 165 mmol/L (135-144)
[2019-05-30 15:53] LABS: ADD UMIC YES; UR ASCORBIC ACID 40 mg/dL (NEGATIVE); UR BACTERIA FEW /HPF (NONE SEEN); UR BILIRUBIN (Dip) NEGATIVE (NEGATIVE); UR BLOOD (Dip) 3+ mg/dL (NEGATIVE); UR CLARITY SLIGHTLY CLOUDY (CLEAR); UR COLOR YELLOW (YELLOW); UR GLUCOSE (Dip) NEGATIVE (NEGATIVE); UR KETONES (Dip) NEGATIVE (NEGATIVE); UR LEUKOCYTE ESTERASE (Dip) 1+ Leu/ul (NEGATIVE); UR MUCUS FEW /HPF (NONE SEEN); UR NITRITE (Dip) NEGATIVE (NEGATIVE); UR RBC 29 /HPF (0-5); UR SPECIFIC GRAVITY (Dip) 1.012 (1.003-1.030); UR TOTAL PROTEIN (Dip) NEGATIVE (NEGATIVE); UR UROBILINOGEN (Dip) NEGATIVE (NEGATIVE); UR WBC 9 /HPF (0-5)
[2019-05-30 16:00] LABS: SODIUM,URINE RANDOM 23 mmol/L (30-90)
[2019-05-30 16:00] LABS: CREATININE,URINE RANDOM 65.77 mg/dl (20-370)
[2019-05-30 16:49] LABS: OSMOLALITY,URINE 356 mOsm/kg (250-1200)
[2019-05-30] MEDS: CASPOFUNGIN 50 MG in SOD CHLORIDE 0.9% 250 ML IVPB (16:53)
[2019-05-30] MEDS: POTASSIUM CHLORIDE 20 MEQ POWDER FOR ORAL SOLN GTB (16:53)
[2019-05-30] MEDS: INSULIN GLARGINE [LANTus] (100 UNITS/ML) SYG SC (21:57)
[2019-05-31] MEDS: INSULIN ASPART [NOVOLOG] 3 ML PEN SC ×6 (01:00→20:44)
[2019-05-31] MEDS: ACCU-CHEK XX (02:00)
[2019-05-31] MEDS: SOD CHLORIDE 0.45% 1,000 ML IV ×4 (05:29→21:48)
[2019-05-31] MEDS: ENOXAPARIN 100 MG/ML SYG SC (06:33)
[2019-05-31] MEDS: VALPROIC ACID LIQUID CUP 250 MG/5 ML CUP GTB ×3 (06:37→21:48)
[2019-05-31] MEDS: metroNIDAZOLE 500 MG TAB PO ×3 (06:38→21:48)
[2019-05-31] MEDS: FOLIC ACID 1 MG TAB GTB (09:09)
[2019-05-31] MEDS: DOXYCYCLINE 100 MG TAB PO ×2 (09:09→20:38)
[2019-05-31] MEDS: QUETIAPINE 25 MG TAB PEG ×2 (09:09→20:39)
[2019-05-31] MEDS: THIAMINE 100 MG TAB GTB (09:10)
[2019-05-31] MEDS: METOPROLOL 50 MG TAB GTB ×3 (09:11→20:40)
[2019-05-31] MEDS: BENZTROPINE 1 MG TAB GTB ×2 (09:11→20:38)
[2019-05-31] MEDS: CLOTRIMAZOLE 1% 30 GM CR TOP ×2 (09:11→20:40)
[2019-05-31] MEDS: metFORMIN 500 MG TAB GTB ×2 (09:11→20:40)
[2019-05-31 11:59] LABS: ADD MAN DIFF? NO
[2019-05-31 12:11] LABS: WHITE BLOOD COUNT 11.5 10^3/ul (4.8-10.8)
[2019-05-31 12:11] LABS: BASOPHILS % 0.3 % (0.0-2.0); EOSINOPHILS # 0.8 10^3/ul (0.0-0.5); EOSINOPHILS % 6.7 % (0.0-7.0); HEMATOCRIT 33.1 % (42.0-52.0); HEMOGLOBIN 9.6 g/dl (14.0-18.0); LYMPHOCYTES # 1.7 10^3/ul (0.8-2.9); LYMPHOCYTES % 14.8 % (15.0-51.0); MEAN CORPUSCULAR VOLUME 89.7 fl (82.0-101.0); MEAN PLATELET VOLUME 11.9 fl (7.4-10.4); MONOCYTE # 0.7 10^3/ul (0.3-0.9); MONOCYTES % 6.3 % (0.0-11.0); NEUTROPHIL # 8.2 10^3/ul (1.6-7.5); NEUTROPHILS % 71.6 % (39.0-77.0); PLATELET COUNT 472 10^3/UL (140-415); RED BLOOD COUNT 3.69 10^6/ul (4.70-6.10); RED CELL DISTRIBUTION WIDTH 18.9 % (11.5-14.5)
[2019-05-31 12:21] LABS: ALANINE AMINOTRANSFERASE 26 IU/L (13-69); ALBUMIN 3.2 g/dl (3.3-4.9); ALBUMIN/GLOBULIN RATIO 0.76; ALKALINE PHOSPHATASE 197 IU/L (42-121); ANION GAP 3 (5-13); ASPARTATE AMINO TRANSFERASE 18 IU/L (15-46); BILIRUBIN,INDIRECT 0.1 mg/dl (0-1.1); BILIRUBIN,TOTAL 0.1 mg/dl (0.2-1.3); BLOOD UREA NITROGEN 42 mg/dl (7-20); CALCIUM 9.5 mg/dl (8.4-10.2); CARBON DIOXIDE 38 mmol/L (21-31); CHLORIDE 123 mmol/L (97-110); Estimated GFR 39 mL/min (>60); GLUCOSE 136 mg/dl (70-220); POTASSIUM 3.3 mmol/L (3.5-5.1); TOTAL PROTEIN 7.4 g/dl (6.1-8.1)
[2019-05-31 12:30] LABS: SODIUM 164 mmol/L (135-144)
[2019-05-31] MEDS: DESMOPRESSIN 4 MCG INJ IV (13:47)
[2019-05-31] MEDS: CASPOFUNGIN 50 MG in SOD CHLORIDE 0.9% 250 ML IVPB (16:10)
[2019-05-31] MEDS: POTASSIUM CHLORIDE 20 MEQ POWDER FOR ORAL SOLN GTB (18:16)
[2019-05-31] MEDS: INSULIN GLARGINE [LANTus] (100 UNITS/ML) SYG SC (20:44)
[2019-05-31] MEDS: LORAZEPAM 0.5 MG TAB PO (20:51)
[2019-06-01] MEDS: INSULIN ASPART [NOVOLOG] 3 ML PEN SC ×6 (01:16→21:00)
[2019-06-01] MEDS: ACCU-CHEK XX (02:00)
[2019-06-01] MEDS: ENOXAPARIN 100 MG/ML SYG SC (05:21)
[2019-06-01] MEDS: metroNIDAZOLE 500 MG TAB PO ×3 (05:38→21:06)
[2019-06-01] MEDS: VALPROIC ACID LIQUID CUP 250 MG/5 ML CUP GTB ×3 (05:38→21:06)
[2019-06-01] MEDS: SOD CHLORIDE 0.45% 1,000 ML IV (05:38)
[2019-06-01 06:12] LABS: ADD MAN DIFF? NO
[2019-06-01 06:18] LABS: WHITE BLOOD COUNT 8.7 10^3/ul (4.8-10.8)
[2019-06-01 06:18] LABS: BASOPHILS % 0.3 % (0.0-2.0); EOSINOPHILS # 0.7 10^3/ul (0.0-0.5); HEMATOCRIT 33.9 % (42.0-52.0); HEMOGLOBIN 9.9 g/dl (14.0-18.0); LYMPHOCYTES # 1.3 10^3/ul (0.8-2.9); MEAN CORPUSCULAR HEMOGLOBIN 26.2 pg (29.0-33.0); MEAN CORPUSCULAR HGB CONC 29.2 g/dl (32.0-37.0); MEAN CORPUSCULAR VOLUME 89.7 fl (82.0-101.0); MEAN PLATELET VOLUME 11.9 fl (7.4-10.4); MONOCYTE # 0.6 10^3/ul (0.3-0.9); MONOCYTES % 6.9 % (0.0-11.0); NEUTROPHILS % 69.5 % (39.0-77.0); PLATELET COUNT 355 10^3/UL (140-415); RED BLOOD COUNT 3.78 10^6/ul (4.70-6.10); RED CELL DISTRIBUTION WIDTH 18.9 % (11.5-14.5)
[2019-06-01 06:36] LABS: MAGNESIUM 2.1 mg/dl (1.7-2.5)
[2019-06-01 06:36] LABS: PHOSPHORUS 4.7 mg/dl (2.5-4.9)
[2019-06-01 06:41] LABS: ANION GAP 1 (5-13); BLOOD UREA NITROGEN 38 mg/dl (7-20); CALCIUM 8.8 mg/dl (8.4-10.2); CARBON DIOXIDE 39 mmol/L (21-31); CHLORIDE 119 mmol/L (97-110); CREATININE 1.64 mg/dl (0.61-1.24); Estimated GFR 43 mL/min (>60); GLUCOSE 194 mg/dl (70-220); SODIUM 159 mmol/L (135-144)
[2019-06-01 06:54] LABS: POTASSIUM 3.4 mmol/L (3.5-5.1)
[2019-06-01] MEDS: POTASSIUM CHLORIDE 20 MEQ POWDER FOR ORAL SOLN GTB (09:23)
[2019-06-01] MEDS: FOLIC ACID 1 MG TAB GTB (09:24)
[2019-06-01] MEDS: BENZTROPINE 1 MG TAB GTB ×2 (09:24→20:50)
[2019-06-01] MEDS: METOPROLOL 50 MG TAB GTB ×3 (09:24→20:51)
[2019-06-01] MEDS: QUETIAPINE 25 MG TAB PEG ×2 (09:25→20:50)
[2019-06-01] MEDS: THIAMINE 100 MG TAB GTB (09:26)
[2019-06-01] MEDS: DOXYCYCLINE 100 MG TAB PO ×2 (09:26→20:50)
[2019-06-01] MEDS: DESMOPRESSIN 4 MCG INJ IV ×2 (09:27→20:50)
[2019-06-01] MEDS: metFORMIN 500 MG TAB GTB ×2 (09:29→20:50)
[2019-06-01] MEDS: CLOTRIMAZOLE 1% 30 GM CR TOP ×2 (09:29→21:05)
[2019-06-01] MEDS: LORAZEPAM 0.5 MG TAB PO ×2 (11:30→16:25)
[2019-06-01 14:44] LABS: ANION GAP 2 (5-13); BLOOD UREA NITROGEN 32 mg/dl (7-20); CALCIUM 8.9 mg/dl (8.4-10.2); CARBON DIOXIDE 39 mmol/L (21-31); CHLORIDE 115 mmol/L (97-110); CREATININE 1.41 mg/dl (0.61-1.24); Estimated GFR 51 mL/min (>60); GLUCOSE 250 mg/dl (70-220); POTASSIUM 3.7 mmol/L (3.5-5.1); SODIUM 156 mmol/L (135-144)
[2019-06-01] MEDS: CASPOFUNGIN 50 MG in SOD CHLORIDE 0.9% 250 ML IVPB (16:24)
[2019-06-01] MEDS: INSULIN GLARGINE [LANTus] (100 UNITS/ML) SYG SC (21:00)
[2019-06-02] MEDS: ACCU-CHEK XX (01:20)
[2019-06-02] MEDS: INSULIN ASPART [NOVOLOG] 3 ML PEN SC ×6 (01:20→21:15)
[2019-06-02] MEDS: VALPROIC ACID LIQUID CUP 250 MG/5 ML CUP GTB ×3 (05:19→21:12)
[2019-06-02] MEDS: metroNIDAZOLE 500 MG TAB PO ×3 (05:19→21:12)
[2019-06-02 05:27] LABS: ADD MAN DIFF? NO
[2019-06-02] MEDS: ENOXAPARIN 100 MG/ML SYG SC (05:29)
[2019-06-02 05:31] LABS: ABNORMAL IP MESSAGE 1; BASOPHILS % 0.2 % (0.0-2.0); EOSINOPHILS # 0.8 10^3/ul (0.0-0.5); EOSINOPHILS % 8.2 % (0.0-7.0); HEMATOCRIT 33.5 % (42.0-52.0); HEMOGLOBIN 9.6 g/dl (14.0-18.0); LYMPHOCYTES # 1.3 10^3/ul (0.8-2.9); LYMPHOCYTES % 13.6 % (15.0-51.0); MEAN CORPUSCULAR HEMOGLOBIN 25.3 pg (29.0-33.0); MEAN CORPUSCULAR HGB CONC 28.7 g/dl (32.0-37.0); MEAN CORPUSCULAR VOLUME 88.4 fl (82.0-101.0); MEAN PLATELET VOLUME 12.1 fl (7.4-10.4); MONOCYTE # 0.7 10^3/ul (0.3-0.9); NEUTROPHIL # 6.8 10^3/ul (1.6-7.5); NEUTROPHILS % 70.6 % (39.0-77.0); PLATELET COUNT 356 10^3/UL (140-415); POSITIVE DIFF @See below; RED BLOOD COUNT 3.79 10^6/ul (4.70-6.10); RED CELL DISTRIBUTION WIDTH 18.2 % (11.5-14.5)
[2019-06-02 05:31] LABS: WHITE BLOOD COUNT 9.6 10^3/ul (4.8-10.8)
[2019-06-02 05:44] LABS: Allen Test ACCEPTAB; Arterial Base Excess 12.2 mmol/L (-3.0-3); Arterial Blood Gas Oxygen Sat 75.5 mmHG (95.0-98.0); Arterial COHb 0.5 % (0.0-3.0); Arterial HCO3 38.7 mmol/L (22.0-26.0); Arterial MetHb 0.2 % (0.0-1.5); Arterial pCO2 60.2 mmhg (35-45); MODE COOL AEROSOL T/M; Site Right Radial
[2019-06-02 06:37] LABS: BLOOD UREA NITROGEN 31 mg/dl (7-20); CALCIUM 9.4 mg/dl (8.4-10.2); CHLORIDE 116 mmol/L (97-110); CREATININE 1.28 mg/dl (0.61-1.24); Estimated GFR 57 mL/min (>60); GLUCOSE 177 mg/dl (70-220); POTASSIUM 3.3 mmol/L (3.5-5.1); SODIUM 156 mmol/L (135-144)
[2019-06-02 07:14] LABS: ANION GAP 4 (5-13)
[2019-06-02 07:17] LABS: CARBON DIOXIDE 36 mmol/L (21-31)
[2019-06-02 08:08] LABS: AADO2 Arterial 276.4 mmHg (7.0-24.0); Allen Test ACCEPTAB; Arterial Base Excess 11.8 mmol/L (-3.0-3); Arterial Blood Gas Oxygen Sat 96.4 mmHG (95.0-98.0); Arterial COHb 0.7 % (0.0-3.0); Arterial Fraction of Oxyhgb 95.5 % (93.0-99.0); Arterial HCO3 37.3 mmol/L (22.0-26.0); Arterial MetHb 0.2 % (0.0-1.5); Arterial pCO2 53.7 mmhg (35-45); MODE TRACH COLLAR; Site Right Radial
[2019-06-02] MEDS: BENZTROPINE 1 MG TAB GTB ×2 (08:40→21:13)
[2019-06-02] MEDS: THIAMINE 100 MG TAB GTB (08:40)
[2019-06-02] MEDS: QUETIAPINE 25 MG TAB PEG ×2 (08:40→21:12)
[2019-06-02] MEDS: DOXYCYCLINE 100 MG TAB PO ×2 (08:40→21:12)
[2019-06-02] MEDS: METOPROLOL 50 MG TAB GTB ×3 (08:40→21:13)
[2019-06-02] MEDS: POTASSIUM CHLORIDE 20 MEQ POWDER FOR ORAL SOLN GTB (08:40)
[2019-06-02] MEDS: FOLIC ACID 1 MG TAB GTB (08:40)
[2019-06-02] MEDS: metFORMIN 500 MG TAB GTB ×2 (08:41→21:13)
[2019-06-02] MEDS: LORAZEPAM 0.5 MG TAB PO ×2 (09:16→16:32)
[2019-06-02] MEDS: CLOTRIMAZOLE 1% 30 GM CR TOP ×2 (09:17→21:21)
[2019-06-02] MEDS: DESMOPRESSIN 4 MCG INJ IV ×2 (09:37→22:25)
[2019-06-02 10:56] LABS: ANISOCYTOSIS 1+ (0-0); BAND NEUTROPHILS #M 3.7 10^3/ul (0.0-0.6); BAND NEUTROPHILS % (M) 39 % (0-4); EOSINOPHILS % (M) 8 % (0-7); HYPOCHROMASIA 1+ (0-0); LYMPHOCYTES #M 0.8 10^3/ul (0.8-2.9); LYMPHOCYTES % (M) 9 % (15-51); METAMYELOCYTES #M 0.1 10^3/ul (0.0-0.0); METAMYELOCYTES %M 2 % (0-0); MICROCYTOSIS 1+ (0-0); MONOCYTE #M 0.3 10^3/ul (0.3-0.9); MONOCYTES % (M) 4 % (0-11); PLATELET ESTIMATE NORMAL; SEGMENTED NEUTROPHILS (M) % 38 % (39-77); SMUDGE%M 11 % (0-0)
[2019-06-02 12:10] LABS: ADD UMIC YES; UR ASCORBIC ACID 20 mg/dL (NEGATIVE); UR BILIRUBIN (Dip) NEGATIVE (NEGATIVE); UR BLOOD (Dip) 1+ mg/dL (NEGATIVE); UR CLARITY CLEAR (CLEAR); UR COLOR YELLOW (YELLOW); UR GLUCOSE (Dip) NEGATIVE (NEGATIVE); UR KETONES (Dip) NEGATIVE (NEGATIVE); UR LEUKOCYTE ESTERASE (Dip) 1+ Leu/ul (NEGATIVE); UR NITRITE (Dip) NEGATIVE (NEGATIVE); UR RBC 4 /HPF (0-5); UR SPECIFIC GRAVITY (Dip) 1.011 (1.003-1.030); UR TOTAL PROTEIN (Dip) NEGATIVE (NEGATIVE); UR UROBILINOGEN (Dip) 1+ mg/dL (NEGATIVE); UR WBC 5 /HPF (0-5)
[2019-06-02 12:43] LABS: CREATININE,URINE RANDOM 51.12 mg/dl (20-370)
[2019-06-02 12:43] LABS: SODIUM,URINE RANDOM 20 mmol/L (30-90)
[2019-06-02 15:00] LABS: BLOOD UREA NITROGEN 33 mg/dl (7-20); CALCIUM 9.6 mg/dl (8.4-10.2); CHLORIDE 115 mmol/L (97-110); CREATININE 1.21 mg/dl (0.61-1.24); Estimated GFR > 60 mL/min (>60); GLUCOSE 235 mg/dl (70-220); POTASSIUM 3.6 mmol/L (3.5-5.1); SODIUM 156 mmol/L (135-144)
[2019-06-02 15:07] LABS: ANION GAP 2 (5-13)
[2019-06-02 15:08] LABS: CARBON DIOXIDE 39 mmol/L (21-31)
[2019-06-02] MEDS: CASPOFUNGIN 50 MG in SOD CHLORIDE 0.9% 250 ML IVPB (15:40)
[2019-06-02 15:56] LABS: OSMOLALITY,URINE 345 mOsm/kg (250-1200)
[2019-06-02 16:51] LABS: CREATININE, RANDOM URINE 65 mg/dL (20-320); MICROALBUMIN 5.8 mg/dL; MICROALBUMIN/CREATININE RATIO 89 (<30)
[2019-06-02] MEDS: INSULIN GLARGINE [LANTus] (100 UNITS/ML) SYG SC (21:15)
[2019-06-03] MEDS: ACCU-CHEK XX (01:18)
[2019-06-03] MEDS: INSULIN ASPART [NOVOLOG] 3 ML PEN SC ×6 (01:18→21:30)
[2019-06-03 02:42] LABS: ADD MAN DIFF? NO
[2019-06-03 02:46] LABS: BASOPHILS % 0.4 % (0.0-2.0); EOSINOPHILS # 0.4 10^3/ul (0.0-0.5); EOSINOPHILS % 5.1 % (0.0-7.0); HEMATOCRIT 34.5 % (42.0-52.0); LYMPHOCYTES # 1.3 10^3/ul (0.8-2.9); LYMPHOCYTES % 16.3 % (15.0-51.0); MEAN CORPUSCULAR HEMOGLOBIN 25.9 pg (29.0-33.0); MEAN CORPUSCULAR VOLUME 89.4 fl (82.0-101.0); MEAN PLATELET VOLUME 12.2 fl (7.4-10.4); MONOCYTE # 0.6 10^3/ul (0.3-0.9); NEUTROPHIL # 5.8 10^3/ul (1.6-7.5); PLATELET COUNT 235 10^3/UL (140-415); RED BLOOD COUNT 3.86 10^6/ul (4.70-6.10); RED CELL DISTRIBUTION WIDTH 17.9 % (11.5-14.5)
[2019-06-03 02:46] LABS: WHITE BLOOD COUNT 8.2 10^3/ul (4.8-10.8)
[2019-06-03 03:05] LABS: ANION GAP 3 (5-13); BLOOD UREA NITROGEN 33 mg/dl (7-20); CALCIUM 9.9 mg/dl (8.4-10.2); CARBON DIOXIDE 39 mmol/L (21-31); CHLORIDE 115 mmol/L (97-110); Estimated GFR > 60 mL/min (>60); GLUCOSE 213 mg/dl (70-220); POTASSIUM 3.5 mmol/L (3.5-5.1); SODIUM 157 mmol/L (135-144)
[2019-06-03] MEDS: METOPROLOL 25 MG TAB GTB (04:05)
[2019-06-03] MEDS: ENOXAPARIN 100 MG/ML SYG SC (04:17)
[2019-06-03] MEDS: VALPROIC ACID LIQUID CUP 250 MG/5 ML CUP GTB ×3 (05:39→22:38)
[2019-06-03] MEDS: metroNIDAZOLE 500 MG TAB PO ×3 (05:39→22:39)
[2019-06-03] MEDS: LORAZEPAM 2 MG INJ IV ×2 (09:01→18:07)
[2019-06-03] MEDS: THIAMINE 100 MG TAB GTB (09:02)
[2019-06-03] MEDS: FOLIC ACID 1 MG TAB GTB (09:02)
[2019-06-03] MEDS: DESMOPRESSIN 4 MCG INJ IV ×2 (09:02→20:44)
[2019-06-03] MEDS: BENZTROPINE 1 MG TAB GTB ×2 (09:02→20:44)
[2019-06-03] MEDS: DOXYCYCLINE 100 MG TAB PO ×2 (09:02→20:44)
[2019-06-03] MEDS: METOPROLOL 50 MG TAB GTB ×3 (09:03→20:45)
[2019-06-03] MEDS: QUETIAPINE 25 MG TAB PEG ×2 (09:03→20:44)
[2019-06-03] MEDS: POTASSIUM CHLORIDE 20 MEQ POWDER FOR ORAL SOLN GTB (09:13)
[2019-06-03] MEDS: HYDROCHLOROTHIAZIDE 25 MG TAB GTB (09:14)
[2019-06-03] MEDS: metFORMIN 500 MG TAB GTB ×2 (09:14→20:44)
[2019-06-03] MEDS: CASPOFUNGIN 50 MG in SOD CHLORIDE 0.9% 250 ML IVPB (15:36)
[2019-06-03 16:01] LABS: CREATININE, RANDOM URINE 52 mg/dL (20-320); MICROALBUMIN 3.3 mg/dL; MICROALBUMIN/CREATININE RATIO 63 (<30)
[2019-06-03 16:14] LABS: ANION GAP 3 (5-13); BLOOD UREA NITROGEN 34 mg/dl (7-20); CALCIUM 9.5 mg/dl (8.4-10.2); CARBON DIOXIDE 39 mmol/L (21-31); CHLORIDE 113 mmol/L (97-110); CREATININE 1.43 mg/dl (0.61-1.24); Estimated GFR 50 mL/min (>60); GLUCOSE 174 mg/dl (70-220); POTASSIUM 3.4 mmol/L (3.5-5.1); SODIUM 155 mmol/L (135-144)
[2019-06-03] MEDS: INSULIN GLARGINE [LANTus] (100 UNITS/ML) SYG SC (21:30)
[2019-06-04] MEDS: ACCU-CHEK XX (02:02)
[2019-06-04] MEDS: INSULIN ASPART [NOVOLOG] 3 ML PEN SC ×6 (02:05→21:32)
[2019-06-04] MEDS: metroNIDAZOLE 500 MG TAB PO ×3 (05:28→21:25)
[2019-06-04] MEDS: VALPROIC ACID LIQUID CUP 250 MG/5 ML CUP GTB ×3 (05:28→21:24)
[2019-06-04 05:47] LABS: ADD MAN DIFF? NO
[2019-06-04] MEDS: ENOXAPARIN 100 MG/ML SYG SC (05:47)
[2019-06-04 06:00] LABS: BASOPHILS % 0.3 % (0.0-2.0); EOSINOPHILS # 0.5 10^3/ul (0.0-0.5); EOSINOPHILS % 5.4 % (0.0-7.0); HEMATOCRIT 31.8 % (42.0-52.0); HEMOGLOBIN 9.3 g/dl (14.0-18.0); LYMPHOCYTES # 1.7 10^3/ul (0.8-2.9); LYMPHOCYTES % 17.5 % (15.0-51.0); MEAN CORPUSCULAR HEMOGLOBIN 26.1 pg (29.0-33.0); MEAN CORPUSCULAR HGB CONC 29.2 g/dl (32.0-37.0); MEAN CORPUSCULAR VOLUME 89.1 fl (82.0-101.0); MEAN PLATELET VOLUME 12.4 fl (7.4-10.4); MONOCYTE # 0.7 10^3/ul (0.3-0.9); MONOCYTES % 7.3 % (0.0-11.0); NEUTROPHIL # 6.8 10^3/ul (1.6-7.5); NEUTROPHILS % 69.1 % (39.0-77.0); PLATELET COUNT 348 10^3/UL (140-415); RED BLOOD COUNT 3.57 10^6/ul (4.70-6.10); RED CELL DISTRIBUTION WIDTH 17.9 % (11.5-14.5)
[2019-06-04 06:00] LABS: WHITE BLOOD COUNT 9.8 10^3/ul (4.8-10.8)
[2019-06-04 06:27] LABS: ANION GAP 4 (5-13); BLOOD UREA NITROGEN 37 mg/dl (7-20); CALCIUM 9.3 mg/dl (8.4-10.2); CARBON DIOXIDE 39 mmol/L (21-31); CHLORIDE 109 mmol/L (97-110); Estimated GFR 52 mL/min (>60); GLUCOSE 137 mg/dl (70-220); POTASSIUM 3.2 mmol/L (3.5-5.1); SODIUM 152 mmol/L (135-144)
[2019-06-04 06:27] LABS: VALPROATE 40 ug/ml (50-100)
[2019-06-04] MEDS: POTASSIUM CHLORIDE 20 MEQ POWDER FOR ORAL SOLN GTB (08:58)
[2019-06-04] MEDS: DOXYCYCLINE 100 MG TAB PO ×2 (09:06→21:25)
[2019-06-04] MEDS: metFORMIN 500 MG TAB GTB ×2 (09:07→21:25)
[2019-06-04] MEDS: METOPROLOL 50 MG TAB GTB ×3 (09:07→21:26)
[2019-06-04] MEDS: BENZTROPINE 1 MG TAB GTB ×2 (09:08→21:25)
[2019-06-04] MEDS: HYDROCHLOROTHIAZIDE 25 MG TAB GTB (09:08)
[2019-06-04] MEDS: QUETIAPINE 25 MG TAB PEG ×2 (09:08→21:26)
[2019-06-04] MEDS: THIAMINE 100 MG TAB GTB (09:08)
[2019-06-04] MEDS: FOLIC ACID 1 MG TAB GTB (09:08)
[2019-06-04] MEDS: CASPOFUNGIN 50 MG in SOD CHLORIDE 0.9% 250 ML IVPB (16:46)
[2019-06-04] MEDS: LOPERAMIDE HCL 1 MG/5 ML LIQUID (10 ML UD CUP) GTB (21:24)
[2019-06-04] MEDS: INSULIN GLARGINE [LANTus] (100 UNITS/ML) SYG SC (22:12)
[2019-06-05] MEDS: INSULIN ASPART [NOVOLOG] 3 ML PEN SC ×4 (01:00→17:24)
[2019-06-05] MEDS: ACCU-CHEK XX (02:08)
[2019-06-05 05:35] LABS: ADD MAN DIFF? NO
[2019-06-05 05:43] LABS: WHITE BLOOD COUNT 8.8 10^3/ul (4.8-10.8)
[2019-06-05 05:43] LABS: BASOPHILS % 0.2 % (0.0-2.0); EOSINOPHILS # 0.6 10^3/ul (0.0-0.5); EOSINOPHILS % 6.5 % (0.0-7.0); HEMOGLOBIN 9.4 g/dl (14.0-18.0); LYMPHOCYTES # 1.5 10^3/ul (0.8-2.9); LYMPHOCYTES % 17.2 % (15.0-51.0); MEAN CORPUSCULAR HEMOGLOBIN 25.5 pg (29.0-33.0); MEAN CORPUSCULAR HGB CONC 29.4 g/dl (32.0-37.0); MEAN PLATELET VOLUME 12.2 fl (7.4-10.4); MONOCYTE # 0.6 10^3/ul (0.3-0.9); MONOCYTES % 7.3 % (0.0-11.0); NEUTROPHILS % 68.5 % (39.0-77.0); PLATELET COUNT 351 10^3/UL (140-415); RED BLOOD COUNT 3.68 10^6/ul (4.70-6.10); RED CELL DISTRIBUTION WIDTH 17.8 % (11.5-14.5)
[2019-06-05] MEDS: VALPROIC ACID LIQUID CUP 250 MG/5 ML CUP GTB ×3 (05:48→21:11)
[2019-06-05] MEDS: metroNIDAZOLE 500 MG TAB PO ×3 (05:48→21:11)
[2019-06-05 05:58] LABS: ANION GAP 4 (5-13); BLOOD UREA NITROGEN 32 mg/dl (7-20); CALCIUM 9.4 mg/dl (8.4-10.2); CARBON DIOXIDE 39 mmol/L (21-31); CHLORIDE 106 mmol/L (97-110); CREATININE 1.25 mg/dl (0.61-1.24); Estimated GFR 59 mL/min (>60); GLUCOSE 120 mg/dl (70-220); SODIUM 149 mmol/L (135-144)
[2019-06-05] MEDS: ENOXAPARIN 100 MG/ML SYG SC ×2 (06:13→21:43)
[2019-06-05] MEDS: THIAMINE 100 MG TAB GTB (08:57)
[2019-06-05] MEDS: QUETIAPINE 25 MG TAB PEG ×2 (08:57→21:11)
[2019-06-05] MEDS: DOXYCYCLINE 100 MG TAB PO ×2 (08:57→21:12)
[2019-06-05] MEDS: BENZTROPINE 1 MG TAB GTB ×2 (08:57→21:12)
[2019-06-05] MEDS: metFORMIN 500 MG TAB GTB ×2 (08:58→21:11)
[2019-06-05] MEDS: METOPROLOL 50 MG TAB GTB ×3 (08:58→21:12)
[2019-06-05] MEDS: HYDROCHLOROTHIAZIDE 25 MG TAB GTB (08:58)
[2019-06-05] MEDS: FOLIC ACID 1 MG TAB GTB (08:59)
[2019-06-05] MEDS: POTASSIUM CHLORIDE 20 MEQ POWDER FOR ORAL SOLN NGT (08:59)
[2019-06-05] MEDS: CASPOFUNGIN 50 MG in SOD CHLORIDE 0.9% 250 ML IVPB (17:13)
[2019-06-05] MEDS: INSULIN GLARGINE [LANTus] (100 UNITS/ML) SYG SC (21:43)
[2019-06-06] MEDS: INSULIN ASPART [NOVOLOG] 3 ML PEN SC ×4 (01:38→18:39)
[2019-06-06] MEDS: ACCU-CHEK XX (01:45)
[2019-06-06] MEDS: metroNIDAZOLE 500 MG TAB PO ×2 (05:08→14:23)
[2019-06-06] MEDS: VALPROIC ACID LIQUID CUP 250 MG/5 ML CUP GTB ×3 (05:08→21:03)
[2019-06-06 06:10] LABS: ADD MAN DIFF? NO
[2019-06-06 06:16] LABS: BASOPHILS % 0.2 % (0.0-2.0); EOSINOPHILS # 0.4 10^3/ul (0.0-0.5); EOSINOPHILS % 4.5 % (0.0-7.0); HEMATOCRIT 33.6 % (42.0-52.0); LYMPHOCYTES # 1.5 10^3/ul (0.8-2.9); LYMPHOCYTES % 17.3 % (15.0-51.0); MEAN CORPUSCULAR HEMOGLOBIN 25.8 pg (29.0-33.0); MEAN CORPUSCULAR HGB CONC 29.8 g/dl (32.0-37.0); MEAN CORPUSCULAR VOLUME 86.8 fl (82.0-101.0); MEAN PLATELET VOLUME 12.6 fl (7.4-10.4); MONOCYTE # 0.7 10^3/ul (0.3-0.9); MONOCYTES % 7.6 % (0.0-11.0); NEUTROPHIL # 6.1 10^3/ul (1.6-7.5); NEUTROPHILS % 70.2 % (39.0-77.0); PLATELET COUNT 392 10^3/UL (140-415); RED BLOOD COUNT 3.87 10^6/ul (4.70-6.10); RED CELL DISTRIBUTION WIDTH 17.7 % (11.5-14.5)
[2019-06-06 06:16] LABS: WHITE BLOOD COUNT 8.7 10^3/ul (4.8-10.8)
[2019-06-06 06:48] LABS: MAGNESIUM 1.9 mg/dl (1.7-2.5)
[2019-06-06 07:01] LABS: ANION GAP 4 (5-13); BLOOD UREA NITROGEN 32 mg/dl (7-20); CALCIUM 9.4 mg/dl (8.4-10.2); CHLORIDE 106 mmol/L (97-110); CREATININE 1.18 mg/dl (0.61-1.24); Estimated GFR > 60 mL/min (>60); GLUCOSE 112 mg/dl (70-220); POTASSIUM 3.3 mmol/L (3.5-5.1); SODIUM 150 mmol/L (135-144)
[2019-06-06 07:14] LABS: CARBON DIOXIDE 40 mmol/L (21-31)
[2019-06-06] MEDS: MAGNESIUM SULFATE 2 GM/50 ML 50 ML IVPB (09:53)
[2019-06-06] MEDS: QUETIAPINE 25 MG TAB PEG ×2 (09:53→21:04)
[2019-06-06] MEDS: THIAMINE 100 MG TAB GTB (09:54)
[2019-06-06] MEDS: POTASSIUM CHLORIDE 20 MEQ POWDER FOR ORAL SOLN GTB ×2 (09:54→14:24)
[2019-06-06] MEDS: metFORMIN 500 MG TAB GTB ×2 (09:54→21:04)
[2019-06-06] MEDS: METOPROLOL 50 MG TAB GTB ×3 (09:55→21:05)
[2019-06-06] MEDS: FOLIC ACID 1 MG TAB GTB (09:56)
[2019-06-06] MEDS: DOXYCYCLINE 100 MG TAB PO (09:56)
[2019-06-06] MEDS: BENZTROPINE 1 MG TAB GTB ×2 (09:56→21:04)
[2019-06-06] MEDS: HYDROCHLOROTHIAZIDE 25 MG TAB GTB (09:56)
[2019-06-06] MEDS: ENOXAPARIN 100 MG/ML SYG SC ×2 (10:03→21:20)
[2019-06-06] MEDS: FUROSEMIDE 20 MG INJ IV (14:25)
[2019-06-06] MEDS: INSULIN GLARGINE [LANTus] (100 UNITS/ML) SYG SC (21:20)
[2019-06-07] MEDS: INSULIN ASPART [NOVOLOG] 3 ML PEN SC ×5 (02:06→23:49)
[2019-06-07] MEDS: ACCU-CHEK XX (02:07)
[2019-06-07] MEDS: VALPROIC ACID LIQUID CUP 250 MG/5 ML CUP GTB ×3 (05:48→21:05)
[2019-06-07] MEDS: FOLIC ACID 1 MG TAB GTB (08:40)
[2019-06-07] MEDS: THIAMINE 100 MG TAB GTB (08:40)
[2019-06-07] MEDS: QUETIAPINE 25 MG TAB PEG ×2 (08:40→20:51)
[2019-06-07] MEDS: BENZTROPINE 1 MG TAB GTB ×2 (08:40→20:50)
[2019-06-07] MEDS: METOPROLOL 50 MG TAB GTB ×3 (08:41→21:04)
[2019-06-07] MEDS: metFORMIN 500 MG TAB GTB ×2 (08:41→20:51)
[2019-06-07] MEDS: HYDROCHLOROTHIAZIDE 25 MG TAB GTB (08:41)
[2019-06-07] MEDS: ENOXAPARIN 100 MG/ML SYG SC ×2 (08:46→20:49)
[2019-06-07 10:24] LABS: ADD MAN DIFF? NO
[2019-06-07 10:29] LABS: BASOPHILS % 0.3 % (0.0-2.0); EOSINOPHILS # 0.4 10^3/ul (0.0-0.5); EOSINOPHILS % 4.6 % (0.0-7.0); HEMATOCRIT 32.3 % (42.0-52.0); HEMOGLOBIN 9.8 g/dl (14.0-18.0); LYMPHOCYTES # 1.7 10^3/ul (0.8-2.9); LYMPHOCYTES % 22.3 % (15.0-51.0); MEAN CORPUSCULAR HEMOGLOBIN 26.1 pg (29.0-33.0); MEAN CORPUSCULAR HGB CONC 30.3 g/dl (32.0-37.0); MEAN CORPUSCULAR VOLUME 85.9 fl (82.0-101.0); MEAN PLATELET VOLUME 12.1 fl (7.4-10.4); MONOCYTE # 0.6 10^3/ul (0.3-0.9); MONOCYTES % 8.3 % (0.0-11.0); NEUTROPHILS % 63.9 % (39.0-77.0); PLATELET COUNT 428 10^3/UL (140-415); RED BLOOD COUNT 3.76 10^6/ul (4.70-6.10); RED CELL DISTRIBUTION WIDTH 18.1 % (11.5-14.5)
[2019-06-07 10:29] LABS: WHITE BLOOD COUNT 7.8 10^3/ul (4.8-10.8)
[2019-06-07 10:45] LABS: ALBUMIN 3.3 g/dl (3.3-4.9); ANION GAP 3 (5-13); BLOOD UREA NITROGEN 31 mg/dl (7-20); CALCIUM 9.6 mg/dl (8.4-10.2); CHLORIDE 103 mmol/L (97-110); CREATININE 1.29 mg/dl (0.61-1.24); GLUCOSE 147 mg/dl (70-220); MAGNESIUM 2.1 mg/dl (1.7-2.5); PHOSPHORUS 4.3 mg/dl (2.5-4.9); POTASSIUM 3.2 mmol/L (3.5-5.1); SODIUM 146 mmol/L (135-144)
[2019-06-07 10:53] LABS: CARBON DIOXIDE 40 mmol/L (21-31)
[2019-06-07 12:16] LABS: AADO2 Arterial 156.4 mmHg (7.0-24.0); Allen Test ACCEPTAB; Arterial Blood Gas Oxygen Sat 94.4 mmHG (95.0-98.0); Arterial COHb 0.3 % (0.0-3.0); Arterial Fraction of Oxyhgb 93.8 % (93.0-99.0); Arterial HCO3 31.8 mmol/L (22.0-26.0); Arterial MetHb 0.3 % (0.0-1.5); Arterial pCO2 46.5 mmhg (35-45); MODE TRACH COLLAR; Site Left Radial
[2019-06-07] MEDS: POTASSIUM CHLORIDE 20 MEQ POWDER FOR ORAL SOLN GTB (12:51)
[2019-06-07] MEDS: CLOTRIMAZOLE 1% 30 ML TOPICAL SOLN TOP ×2 (13:17→20:51)
[2019-06-07] MEDS: INSULIN GLARGINE [LANTus] (100 UNITS/ML) SYG SC (20:49)
[2019-06-08] MEDS: ACCU-CHEK XX (02:00)
[2019-06-08] MEDS: VALPROIC ACID LIQUID CUP 250 MG/5 ML CUP GTB ×3 (05:26→21:10)
[2019-06-08] MEDS: INSULIN ASPART [NOVOLOG] 3 ML PEN SC ×4 (05:28→23:48)
[2019-06-08 05:46] LABS: ADD MAN DIFF? NO
[2019-06-08 05:49] LABS: WHITE BLOOD COUNT 6.2 10^3/ul (4.8-10.8)
[2019-06-08 05:49] LABS: BASOPHILS % 0.2 % (0.0-2.0); EOSINOPHILS # 0.3 10^3/ul (0.0-0.5); EOSINOPHILS % 4.7 % (0.0-7.0); HEMATOCRIT 32.3 % (42.0-52.0); HEMOGLOBIN 9.7 g/dl (14.0-18.0); LYMPHOCYTES # 1.7 10^3/ul (0.8-2.9); LYMPHOCYTES % 26.9 % (15.0-51.0); MEAN CORPUSCULAR HEMOGLOBIN 25.8 pg (29.0-33.0); MEAN CORPUSCULAR VOLUME 85.9 fl (82.0-101.0); MONOCYTE # 0.6 10^3/ul (0.3-0.9); MONOCYTES % 9.4 % (0.0-11.0); NEUTROPHIL # 3.6 10^3/ul (1.6-7.5); PLATELET COUNT 449 10^3/UL (140-415); RED BLOOD COUNT 3.76 10^6/ul (4.70-6.10); RED CELL DISTRIBUTION WIDTH 18.4 % (11.5-14.5)
[2019-06-08 06:17] LABS: ALBUMIN 3.4 g/dl (3.3-4.9); BLOOD UREA NITROGEN 30 mg/dl (7-20); CALCIUM 9.3 mg/dl (8.4-10.2); CHLORIDE 103 mmol/L (97-110); GLUCOSE 120 mg/dl (70-220); PHOSPHORUS 4.6 mg/dl (2.5-4.9); POTASSIUM 3.2 mmol/L (3.5-5.1); SODIUM 146 mmol/L (135-144)
[2019-06-08 06:23] LABS: ANION GAP 4 (5-13)
[2019-06-08 06:24] LABS: CARBON DIOXIDE 39 mmol/L (21-31)
[2019-06-08] MEDS: POTASSIUM CHLORIDE 20 MEQ POWDER FOR ORAL SOLN GTB (09:25)
[2019-06-08] MEDS: FOLIC ACID 1 MG TAB GTB (09:25)
[2019-06-08] MEDS: BENZTROPINE 1 MG TAB GTB ×2 (09:26→20:49)
[2019-06-08] MEDS: QUETIAPINE 25 MG TAB PEG ×2 (09:26→20:49)
[2019-06-08] MEDS: metFORMIN 500 MG TAB GTB ×2 (09:27→20:53)
[2019-06-08] MEDS: THIAMINE 100 MG TAB GTB (09:28)
[2019-06-08] MEDS: HYDROCHLOROTHIAZIDE 25 MG TAB GTB (09:31)
[2019-06-08] MEDS: METOPROLOL 50 MG TAB GTB ×3 (09:32→20:52)
[2019-06-08] MEDS: SPIRONOLACTONE 25 MG TAB NGT (09:32)
[2019-06-08] MEDS: CLOTRIMAZOLE 1% 30 ML TOPICAL SOLN TOP ×2 (09:33→20:56)
[2019-06-08] MEDS: ENOXAPARIN 100 MG/ML SYG SC ×2 (11:25→21:08)
[2019-06-08] MEDS: INSULIN GLARGINE [LANTus] (100 UNITS/ML) SYG SC (20:48)
[2019-06-09] MEDS: ACCU-CHEK XX (01:51)
[2019-06-09 05:32] LABS: ADD MAN DIFF? NO
[2019-06-09] MEDS: VALPROIC ACID LIQUID CUP 250 MG/5 ML CUP GTB ×3 (05:42→21:17)
[2019-06-09 05:45] LABS: WHITE BLOOD COUNT 6.8 10^3/ul (4.8-10.8)
[2019-06-09 05:45] LABS: BASOPHILS % 0.3 % (0.0-2.0); EOSINOPHILS # 0.3 10^3/ul (0.0-0.5); EOSINOPHILS % 3.8 % (0.0-7.0); HEMATOCRIT 33.2 % (42.0-52.0); HEMOGLOBIN 10.1 g/dl (14.0-18.0); LYMPHOCYTES # 1.9 10^3/ul (0.8-2.9); LYMPHOCYTES % 28.4 % (15.0-51.0); MEAN CORPUSCULAR HEMOGLOBIN 26.6 pg (29.0-33.0); MEAN CORPUSCULAR HGB CONC 30.4 g/dl (32.0-37.0); MEAN CORPUSCULAR VOLUME 87.4 fl (82.0-101.0); MEAN PLATELET VOLUME 11.9 fl (7.4-10.4); MONOCYTE # 0.6 10^3/ul (0.3-0.9); MONOCYTES % 9.1 % (0.0-11.0); NEUTROPHIL # 3.9 10^3/ul (1.6-7.5); NEUTROPHILS % 57.2 % (39.0-77.0); PLATELET COUNT 469 10^3/UL (140-415); RED CELL DISTRIBUTION WIDTH 18.6 % (11.5-14.5)
[2019-06-09] MEDS: INSULIN ASPART [NOVOLOG] 3 ML PEN SC ×4 (06:08→23:51)
[2019-06-09 06:11] LABS: ANION GAP 4 (5-13); BLOOD UREA NITROGEN 31 mg/dl (7-20); CALCIUM 9.3 mg/dl (8.4-10.2); CARBON DIOXIDE 39 mmol/L (21-31); CHLORIDE 102 mmol/L (97-110); CREATININE 1.21 mg/dl (0.61-1.24); Estimated GFR > 60 mL/min (>60); GLUCOSE 162 mg/dl (70-220); PHOSPHORUS 4.7 mg/dl (2.5-4.9); POTASSIUM 3.7 mmol/L (3.5-5.1); SODIUM 145 mmol/L (135-144)
[2019-06-09] MEDS: PETROLATUM 5 GM OINT TOP (09:32)
[2019-06-09] MEDS: FOLIC ACID 1 MG TAB GTB (09:33)
[2019-06-09] MEDS: SPIRONOLACTONE 25 MG TAB NGT (09:33)
[2019-06-09] MEDS: BENZTROPINE 1 MG TAB GTB ×2 (09:33→21:13)
[2019-06-09] MEDS: QUETIAPINE 25 MG TAB PEG ×2 (09:33→21:14)
[2019-06-09] MEDS: HYDROCHLOROTHIAZIDE 25 MG TAB GTB (09:33)
[2019-06-09] MEDS: THIAMINE 100 MG TAB GTB (09:33)
[2019-06-09] MEDS: CLOTRIMAZOLE 1% 30 ML TOPICAL SOLN TOP ×2 (09:34→21:28)
[2019-06-09] MEDS: METOPROLOL 50 MG TAB GTB ×3 (09:34→21:28)
[2019-06-09] MEDS: metFORMIN 500 MG TAB GTB ×2 (09:36→21:13)
[2019-06-09] MEDS: ENOXAPARIN 100 MG/ML SYG SC ×2 (09:40→21:19)
[2019-06-09] MEDS: INSULIN GLARGINE [LANTus] (100 UNITS/ML) SYG SC (21:19)
[2019-06-10] MEDS: ACCU-CHEK XX (02:00)
[2019-06-10] MEDS: VALPROIC ACID LIQUID CUP 250 MG/5 ML CUP GTB ×3 (05:23→21:20)
[2019-06-10] MEDS: INSULIN ASPART [NOVOLOG] 3 ML PEN SC ×4 (05:26→23:29)
[2019-06-10 06:04] LABS: ADD MAN DIFF? NO
[2019-06-10 06:17] LABS: WHITE BLOOD COUNT 6.9 10^3/ul (4.8-10.8)
[2019-06-10 06:17] LABS: BASOPHILS % 0.3 % (0.0-2.0); EOSINOPHILS # 0.3 10^3/ul (0.0-0.5); EOSINOPHILS % 3.6 % (0.0-7.0); HEMATOCRIT 33.6 % (42.0-52.0); HEMOGLOBIN 10.3 g/dl (14.0-18.0); LYMPHOCYTES % 29.5 % (15.0-51.0); MEAN CORPUSCULAR HEMOGLOBIN 26.4 pg (29.0-33.0); MEAN CORPUSCULAR HGB CONC 30.7 g/dl (32.0-37.0); MEAN CORPUSCULAR VOLUME 86.2 fl (82.0-101.0); MONOCYTE # 0.6 10^3/ul (0.3-0.9); NEUTROPHIL # 3.9 10^3/ul (1.6-7.5); NEUTROPHILS % 56.6 % (39.0-77.0); PLATELET COUNT 484 10^3/UL (140-415); RED CELL DISTRIBUTION WIDTH 19.3 % (11.5-14.5)
[2019-06-10 06:33] LABS: ANION GAP 7 (5-13); BLOOD UREA NITROGEN 30 mg/dl (7-20); CALCIUM 9.6 mg/dl (8.4-10.2); CARBON DIOXIDE 38 mmol/L (21-31); CHLORIDE 99 mmol/L (97-110); CREATININE 1.22 mg/dl (0.61-1.24); Estimated GFR > 60 mL/min (>60); GLUCOSE 154 mg/dl (70-220); MAGNESIUM 1.8 mg/dl (1.7-2.5); PHOSPHORUS 4.7 mg/dl (2.5-4.9); POTASSIUM 3.6 mmol/L (3.5-5.1); SODIUM 144 mmol/L (135-144)
[2019-06-10] MEDS: BENZTROPINE 1 MG TAB GTB ×2 (08:24→20:45)
[2019-06-10] MEDS: metFORMIN 500 MG TAB GTB ×2 (08:24→20:48)
[2019-06-10] MEDS: THIAMINE 100 MG TAB GTB (08:24)
[2019-06-10] MEDS: FOLIC ACID 1 MG TAB GTB (08:24)
[2019-06-10] MEDS: QUETIAPINE 25 MG TAB PEG ×2 (08:24→20:45)
[2019-06-10] MEDS: METOPROLOL 50 MG TAB GTB ×3 (08:25→20:45)
[2019-06-10] MEDS: HYDROCHLOROTHIAZIDE 25 MG TAB GTB (08:25)
[2019-06-10] MEDS: SPIRONOLACTONE 25 MG TAB NGT (08:25)
[2019-06-10] MEDS: CLOTRIMAZOLE 1% 30 ML TOPICAL SOLN TOP ×2 (08:26→20:48)
[2019-06-10] MEDS: ENOXAPARIN 100 MG/ML SYG SC ×2 (08:27→21:16)
[2019-06-10] MEDS: clonAZEPAM 0.5 MG TAB GTB ×2 (13:35→21:19)
[2019-06-10] MEDS: INSULIN GLARGINE [LANTus] (100 UNITS/ML) SYG SC (20:55)
[2019-06-11] MEDS: ACCU-CHEK XX (02:00)
[2019-06-11] MEDS: VALPROIC ACID LIQUID CUP 250 MG/5 ML CUP GTB ×3 (06:03→21:05)
[2019-06-11] MEDS: clonAZEPAM 0.5 MG TAB GTB ×3 (06:04→21:05)
[2019-06-11] MEDS: INSULIN ASPART [NOVOLOG] 3 ML PEN SC ×4 (06:37→23:50)
[2019-06-11] MEDS: metFORMIN 500 MG TAB GTB ×2 (08:21→20:48)
[2019-06-11] MEDS: BENZTROPINE 1 MG TAB GTB ×2 (08:21→20:48)
[2019-06-11] MEDS: METOPROLOL 50 MG TAB GTB ×3 (08:21→20:48)
[2019-06-11] MEDS: QUETIAPINE 25 MG TAB PEG ×2 (08:21→20:47)
[2019-06-11] MEDS: THIAMINE 100 MG TAB GTB (08:22)
[2019-06-11] MEDS: HYDROCHLOROTHIAZIDE 25 MG TAB GTB (08:22)
[2019-06-11] MEDS: FOLIC ACID 1 MG TAB GTB (08:22)
[2019-06-11] MEDS: SPIRONOLACTONE 25 MG TAB NGT (08:22)
[2019-06-11] MEDS: ENOXAPARIN 100 MG/ML SYG SC ×2 (08:30→21:31)
[2019-06-11] MEDS: CLOTRIMAZOLE 1% 30 ML TOPICAL SOLN TOP ×2 (10:30→21:05)
[2019-06-11] MEDS: INSULIN GLARGINE [LANTus] (100 UNITS/ML) SYG SC (20:53)
[2019-06-12] MEDS: ACCU-CHEK XX (01:05)
[2019-06-12 05:44] LABS: ADD MAN DIFF? NO
[2019-06-12 05:45] LABS: WHITE BLOOD COUNT 6.7 10^3/ul (4.8-10.8)
[2019-06-12 05:46] LABS: BASOPHILS % 0.6 % (0.0-2.0); EOSINOPHILS # 0.2 10^3/ul (0.0-0.5); EOSINOPHILS % 3.3 % (0.0-7.0); HEMATOCRIT 34.4 % (42.0-52.0); HEMOGLOBIN 10.8 g/dl (14.0-18.0); LYMPHOCYTES # 1.9 10^3/ul (0.8-2.9); LYMPHOCYTES % 27.7 % (15.0-51.0); MEAN CORPUSCULAR HEMOGLOBIN 26.8 pg (29.0-33.0); MEAN CORPUSCULAR HGB CONC 31.4 g/dl (32.0-37.0); MEAN CORPUSCULAR VOLUME 85.4 fl (82.0-101.0); MEAN PLATELET VOLUME 11.5 fl (7.4-10.4); MONOCYTE # 0.6 10^3/ul (0.3-0.9); MONOCYTES % 9.1 % (0.0-11.0); NEUTROPHIL # 3.9 10^3/ul (1.6-7.5); NEUTROPHILS % 57.5 % (39.0-77.0); PLATELET COUNT 459 10^3/UL (140-415); RED BLOOD COUNT 4.03 10^6/ul (4.70-6.10); RED CELL DISTRIBUTION WIDTH 19.2 % (11.5-14.5)
[2019-06-12 06:18] LABS: ANION GAP 6 (5-13); BLOOD UREA NITROGEN 30 mg/dl (7-20); CALCIUM 9.2 mg/dl (8.4-10.2); CHLORIDE 95 mmol/L (97-110); CREATININE 1.15 mg/dl (0.61-1.24); Estimated GFR > 60 mL/min (>60); GLUCOSE 111 mg/dl (70-220); MAGNESIUM 1.9 mg/dl (1.7-2.5); PHOSPHORUS 5.5 mg/dl (2.5-4.9); SODIUM 141 mmol/L (135-144)
[2019-06-12] MEDS: clonAZEPAM 0.5 MG TAB GTB ×3 (06:30→21:47)
[2019-06-12] MEDS: VALPROIC ACID LIQUID CUP 250 MG/5 ML CUP GTB ×3 (06:30→21:47)
[2019-06-12 06:33] LABS: CARBON DIOXIDE 40 mmol/L (21-31)
[2019-06-12] MEDS: INSULIN ASPART [NOVOLOG] 3 ML PEN SC ×4 (06:43→23:50)
[2019-06-12 06:44] LABS: POTASSIUM 3.4 mmol/L (3.5-5.1)
[2019-06-12] MEDS: FOLIC ACID 1 MG TAB GTB (08:25)
[2019-06-12] MEDS: POTASSIUM CHLORIDE 20 MEQ POWDER FOR ORAL SOLN GTB (08:25)
[2019-06-12] MEDS: SPIRONOLACTONE 25 MG TAB NGT (08:25)
[2019-06-12] MEDS: BENZTROPINE 1 MG TAB GTB ×2 (08:25→21:48)
[2019-06-12] MEDS: THIAMINE 100 MG TAB GTB (08:26)
[2019-06-12] MEDS: QUETIAPINE 25 MG TAB PEG ×2 (08:26→21:48)
[2019-06-12] MEDS: metFORMIN 500 MG TAB GTB ×2 (08:26→21:48)
[2019-06-12] MEDS: HYDROCHLOROTHIAZIDE 25 MG TAB GTB (08:26)
[2019-06-12] MEDS: METOPROLOL 50 MG TAB GTB ×3 (08:27→21:48)
[2019-06-12] MEDS: ENOXAPARIN 100 MG/ML SYG SC ×2 (08:31→21:50)
[2019-06-12] MEDS: CLOTRIMAZOLE 1% 30 ML TOPICAL SOLN TOP ×2 (09:00→21:47)
[2019-06-12] MEDS: INSULIN GLARGINE [LANTus] (100 UNITS/ML) SYG SC (22:04)
[2019-06-13] MEDS: ACCU-CHEK XX (02:00)
[2019-06-13] MEDS: INSULIN ASPART [NOVOLOG] 3 ML PEN SC ×3 (06:00→17:44)
[2019-06-13] MEDS: VALPROIC ACID LIQUID CUP 250 MG/5 ML CUP GTB ×3 (06:05→21:33)
[2019-06-13] MEDS: clonAZEPAM 0.5 MG TAB GTB ×3 (06:05→21:33)
[2019-06-13] MEDS: FOLIC ACID 1 MG TAB GTB (08:42)
[2019-06-13] MEDS: THIAMINE 100 MG TAB GTB (08:42)
[2019-06-13] MEDS: QUETIAPINE 25 MG TAB PEG ×2 (08:42→20:09)
[2019-06-13] MEDS: BENZTROPINE 1 MG TAB GTB ×2 (08:43→20:09)
[2019-06-13] MEDS: metFORMIN 500 MG TAB GTB ×2 (08:43→20:09)
[2019-06-13] MEDS: HYDROCHLOROTHIAZIDE 25 MG TAB GTB (08:43)
[2019-06-13] MEDS: METOPROLOL 50 MG TAB GTB ×3 (08:44→21:34)
[2019-06-13] MEDS: SPIRONOLACTONE 25 MG TAB NGT (08:44)
[2019-06-13] MEDS: ENOXAPARIN 100 MG/ML SYG SC ×2 (08:51→20:21)
[2019-06-13] MEDS: CLOTRIMAZOLE 1% 30 ML TOPICAL SOLN TOP ×2 (08:53→21:34)
[2019-06-13] MEDS: INSULIN GLARGINE [LANTus] (100 UNITS/ML) SYG SC (21:43)
[2019-06-14] MEDS: ACCU-CHEK XX (01:37)
[2019-06-14 05:26] LABS: ADD MAN DIFF? NO
[2019-06-14 05:35] LABS: BASOPHIL # 0.1 10^3/ul (0.0-0.1); BASOPHILS % 0.8 % (0.0-2.0); EOSINOPHILS # 0.2 10^3/ul (0.0-0.5); EOSINOPHILS % 3.1 % (0.0-7.0); HEMATOCRIT 36.8 % (42.0-52.0); HEMOGLOBIN 11.4 g/dl (14.0-18.0); LYMPHOCYTES # 1.7 10^3/ul (0.8-2.9); LYMPHOCYTES % 26.8 % (15.0-51.0); MEAN CORPUSCULAR HEMOGLOBIN 26.8 pg (29.0-33.0); MEAN CORPUSCULAR VOLUME 86.4 fl (82.0-101.0); MEAN PLATELET VOLUME 11.8 fl (7.4-10.4); MONOCYTE # 0.6 10^3/ul (0.3-0.9); MONOCYTES % 8.9 % (0.0-11.0); NEUTROPHIL # 3.8 10^3/ul (1.6-7.5); PLATELET COUNT 403 10^3/UL (140-415); RED BLOOD COUNT 4.26 10^6/ul (4.70-6.10); RED CELL DISTRIBUTION WIDTH 19.4 % (11.5-14.5)
[2019-06-14 05:35] LABS: WHITE BLOOD COUNT 6.4 10^3/ul (4.8-10.8)
[2019-06-14 05:58] LABS: ANION GAP 8 (5-13); BLOOD UREA NITROGEN 30 mg/dl (7-20); CARBON DIOXIDE 37 mmol/L (21-31); CHLORIDE 93 mmol/L (97-110); CREATININE 1.07 mg/dl (0.61-1.24); Estimated GFR > 60 mL/min (>60); GLUCOSE 101 mg/dl (70-220); MAGNESIUM 1.9 mg/dl (1.7-2.5); PHOSPHORUS 3.9 mg/dl (2.5-4.9); POTASSIUM 3.7 mmol/L (3.5-5.1); SODIUM 138 mmol/L (135-144)
[2019-06-14] MEDS: INSULIN ASPART [NOVOLOG] 3 ML PEN SC ×4 (06:00→18:00)
[2019-06-14] MEDS: VALPROIC ACID LIQUID CUP 250 MG/5 ML CUP GTB ×3 (06:04→21:49)
[2019-06-14] MEDS: clonAZEPAM 0.5 MG TAB GTB ×3 (06:04→21:50)
[2019-06-14] MEDS: SPIRONOLACTONE 25 MG TAB NGT (08:45)
[2019-06-14] MEDS: HYDROCHLOROTHIAZIDE 25 MG TAB GTB (08:45)
[2019-06-14] MEDS: METOPROLOL 50 MG TAB GTB ×3 (08:46→20:31)
[2019-06-14] MEDS: QUETIAPINE 25 MG TAB PEG ×2 (08:46→20:30)
[2019-06-14] MEDS: FOLIC ACID 1 MG TAB GTB (08:46)
[2019-06-14] MEDS: metFORMIN 500 MG TAB GTB ×2 (08:46→20:31)
[2019-06-14] MEDS: BENZTROPINE 1 MG TAB GTB ×2 (08:46→20:31)
[2019-06-14] MEDS: THIAMINE 100 MG TAB GTB (08:46)
[2019-06-14] MEDS: ENOXAPARIN 100 MG/ML SYG SC ×2 (08:49→20:43)
[2019-06-14] MEDS: CLOTRIMAZOLE 1% 30 ML TOPICAL SOLN TOP ×2 (08:54→20:32)
[2019-06-14] MEDS: INSULIN GLARGINE [LANTus] (100 UNITS/ML) SYG SC (20:42)
[2019-06-15] MEDS: ACCU-CHEK XX (02:00)
[2019-06-15 05:54] LABS: ADD MAN DIFF? NO
[2019-06-15 06:03] LABS: BASOPHILS % 0.3 % (0.0-2.0); EOSINOPHILS # 0.2 10^3/ul (0.0-0.5); EOSINOPHILS % 2.7 % (0.0-7.0); HEMATOCRIT 35.2 % (42.0-52.0); LYMPHOCYTES # 1.6 10^3/ul (0.8-2.9); MEAN CORPUSCULAR HEMOGLOBIN 26.8 pg (29.0-33.0); MEAN CORPUSCULAR HGB CONC 31.3 g/dl (32.0-37.0); MEAN CORPUSCULAR VOLUME 85.9 fl (82.0-101.0); MEAN PLATELET VOLUME 11.7 fl (7.4-10.4); MONOCYTE # 0.6 10^3/ul (0.3-0.9); MONOCYTES % 8.7 % (0.0-11.0); NEUTROPHIL # 4.4 10^3/ul (1.6-7.5); NEUTROPHILS % 64.4 % (39.0-77.0); PLATELET COUNT 377 10^3/UL (140-415); RED CELL DISTRIBUTION WIDTH 19.4 % (11.5-14.5)
[2019-06-15 06:03] LABS: WHITE BLOOD COUNT 6.8 10^3/ul (4.8-10.8)
[2019-06-15] MEDS: VALPROIC ACID LIQUID CUP 250 MG/5 ML CUP GTB ×3 (06:05→22:28)
[2019-06-15] MEDS: clonAZEPAM 0.5 MG TAB GTB ×3 (06:05→22:29)
[2019-06-15] MEDS: INSULIN ASPART [NOVOLOG] 3 ML PEN SC ×4 (06:13→18:00)
[2019-06-15 06:29] LABS: ANION GAP 6 (5-13); BLOOD UREA NITROGEN 30 mg/dl (7-20); CALCIUM 8.9 mg/dl (8.4-10.2); CARBON DIOXIDE 38 mmol/L (21-31); CHLORIDE 94 mmol/L (97-110); CREATININE 1.02 mg/dl (0.61-1.24); Estimated GFR > 60 mL/min (>60); GLUCOSE 141 mg/dl (70-220); MAGNESIUM 1.9 mg/dl (1.7-2.5); PHOSPHORUS 4.3 mg/dl (2.5-4.9); POTASSIUM 3.8 mmol/L (3.5-5.1); SODIUM 138 mmol/L (135-144)
[2019-06-15] MEDS: THIAMINE 100 MG TAB GTB (10:02)
[2019-06-15] MEDS: FOLIC ACID 1 MG TAB GTB (10:03)
[2019-06-15] MEDS: METOPROLOL 50 MG TAB GTB ×3 (10:03→20:27)
[2019-06-15] MEDS: HYDROCHLOROTHIAZIDE 25 MG TAB GTB (10:03)
[2019-06-15] MEDS: BENZTROPINE 1 MG TAB GTB ×2 (10:03→20:27)
[2019-06-15] MEDS: SPIRONOLACTONE 25 MG TAB NGT (10:03)
[2019-06-15] MEDS: QUETIAPINE 25 MG TAB PEG ×2 (10:04→20:27)
[2019-06-15] MEDS: ENOXAPARIN 100 MG/ML SYG SC ×2 (10:07→20:35)
[2019-06-15] MEDS: CLOTRIMAZOLE 1% 30 GM CR TOP ×2 (10:10→20:28)
[2019-06-15] MEDS: metFORMIN 500 MG TAB GTB ×2 (10:12→20:26)
[2019-06-15] MEDS: LACTOBACILLUS RHAMNOSUS CAP PO (20:21)
[2019-06-15] MEDS: FAMOTIDINE 20 MG TAB PO (20:27)
[2019-06-15] MEDS: INSULIN GLARGINE [LANTus] (100 UNITS/ML) SYG SC (20:33)
[2019-06-16] MEDS: ACCU-CHEK XX (02:00)
[2019-06-16] MEDS: clonAZEPAM 0.5 MG TAB GTB ×3 (05:30→23:00)
[2019-06-16] MEDS: INSULIN ASPART [NOVOLOG] 3 ML PEN SC ×4 (05:31→17:47)
[2019-06-16] MEDS: VALPROIC ACID LIQUID CUP 250 MG/5 ML CUP GTB ×3 (05:31→22:59)
[2019-06-16 05:52] LABS: ADD MAN DIFF? NO
[2019-06-16 05:55] LABS: BASOPHILS % 0.5 % (0.0-2.0); EOSINOPHILS # 0.2 10^3/ul (0.0-0.5); EOSINOPHILS % 2.9 % (0.0-7.0); HEMATOCRIT 38.2 % (42.0-52.0); HEMOGLOBIN 11.9 g/dl (14.0-18.0); LYMPHOCYTES % 25.3 % (15.0-51.0); MEAN CORPUSCULAR HGB CONC 31.2 g/dl (32.0-37.0); MEAN CORPUSCULAR VOLUME 86.8 fl (82.0-101.0); MEAN PLATELET VOLUME 11.4 fl (7.4-10.4); MONOCYTE # 0.7 10^3/ul (0.3-0.9); MONOCYTES % 8.4 % (0.0-11.0); NEUTROPHIL # 4.9 10^3/ul (1.6-7.5); PLATELET COUNT 370 10^3/UL (140-415); RED CELL DISTRIBUTION WIDTH 19.9 % (11.5-14.5)
[2019-06-16 06:16] LABS: INR 0.95; PROTIME 12.8 Sec (11.9-14.9)
[2019-06-16 06:31] LABS: PHOSPHORUS 4.1 mg/dl (2.5-4.9)
[2019-06-16 06:32] LABS: ALANINE AMINOTRANSFERASE 11 IU/L (13-69); ALBUMIN 3.8 g/dl (3.3-4.9); ALBUMIN/GLOBULIN RATIO 0.92; ALKALINE PHOSPHATASE 89 IU/L (42-121); ANION GAP 7 (5-13); ASPARTATE AMINO TRANSFERASE 23 IU/L (15-46); BILIRUBIN,INDIRECT 0.1 mg/dl (0-1.1); BILIRUBIN,TOTAL 0.1 mg/dl (0.2-1.3); BLOOD UREA NITROGEN 31 mg/dl (7-20); CARBON DIOXIDE 37 mmol/L (21-31); CHLORIDE 94 mmol/L (97-110); CREATININE 1.18 mg/dl (0.61-1.24); Estimated GFR > 60 mL/min (>60); GLUCOSE 114 mg/dl (70-220); POTASSIUM 3.7 mmol/L (3.5-5.1); SODIUM 138 mmol/L (135-144); TOTAL PROTEIN 7.9 g/dl (6.1-8.1)
[2019-06-16] MEDS: metFORMIN 500 MG TAB GTB ×2 (09:47→20:36)
[2019-06-16] MEDS: HYDROCHLOROTHIAZIDE 25 MG TAB GTB (09:48)
[2019-06-16] MEDS: METOPROLOL 50 MG TAB GTB ×3 (09:48→20:37)
[2019-06-16] MEDS: LACTOBACILLUS RHAMNOSUS CAP PO ×2 (09:48→20:38)
[2019-06-16] MEDS: SPIRONOLACTONE 25 MG TAB NGT (09:48)
[2019-06-16] MEDS: THIAMINE 100 MG TAB GTB (09:48)
[2019-06-16] MEDS: FOLIC ACID 1 MG TAB GTB (09:48)
[2019-06-16] MEDS: BENZTROPINE 1 MG TAB GTB ×2 (09:48→20:36)
[2019-06-16] MEDS: QUETIAPINE 25 MG TAB PEG ×2 (09:49→20:36)
[2019-06-16] MEDS: CLOTRIMAZOLE 1% 30 GM CR TOP ×2 (09:49→20:38)
[2019-06-16] MEDS: ENOXAPARIN 100 MG/ML SYG SC ×2 (10:12→20:54)
[2019-06-16] MEDS: FAMOTIDINE 20 MG TAB PO (20:36)
[2019-06-16] MEDS: INSULIN GLARGINE [LANTus] (100 UNITS/ML) SYG SC (20:54)
[2019-06-17] MEDS: ACCU-CHEK XX (02:00)
[2019-06-17] MEDS: VALPROIC ACID LIQUID CUP 250 MG/5 ML CUP GTB ×2 (05:34→13:59)
[2019-06-17] MEDS: clonAZEPAM 0.5 MG TAB GTB ×2 (05:34→13:58)
[2019-06-17] MEDS: INSULIN ASPART [NOVOLOG] 3 ML PEN SC ×3 (05:38→12:00)
[2019-06-17 06:57] LABS: ANION GAP 10 (5-13); BLOOD UREA NITROGEN 32 mg/dl (7-20); CALCIUM 8.9 mg/dl (8.4-10.2); CARBON DIOXIDE 35 mmol/L (21-31); CHLORIDE 92 mmol/L (97-110); CREATININE 1.07 mg/dl (0.61-1.24); Estimated GFR > 60 mL/min (>60); GLUCOSE 96 mg/dl (70-220); PHOSPHORUS 4.1 mg/dl (2.5-4.9); POTASSIUM 4.2 mmol/L (3.5-5.1); SODIUM 137 mmol/L (135-144)
[2019-06-17] MEDS: metFORMIN 500 MG TAB GTB (08:45)
[2019-06-17] MEDS: LACTOBACILLUS RHAMNOSUS CAP PO (08:45)
[2019-06-17] MEDS: METOPROLOL 50 MG TAB GTB ×2 (08:45→12:12)
[2019-06-17] MEDS: SPIRONOLACTONE 25 MG TAB NGT (08:46)
[2019-06-17] MEDS: THIAMINE 100 MG TAB GTB (08:46)
[2019-06-17] MEDS: BENZTROPINE 1 MG TAB GTB (08:46)
[2019-06-17] MEDS: QUETIAPINE 25 MG TAB PEG (08:46)
[2019-06-17] MEDS: CLOTRIMAZOLE 1% 30 GM CR TOP (08:47)
[2019-06-17] MEDS: FOLIC ACID 1 MG TAB GTB (08:47)
[2019-06-17] MEDS: ENOXAPARIN 100 MG/ML SYG SC (09:33)
== END 2019-06-17 17:05 | DRG 314 ==
LOC: MS3 23:39 → 6WM 05-22 06:33
PROC: 02HV33Z Insertion of Infusion Device into Superior Vena Cava, Percutaneous Approach (ICD-10-PCS; principal; 2019-05-30)
DX: T80.211A Bloodstream infection due to central venous catheter, initial encounter (principal); B37.7 Candidal sepsis; J18.9 Pneumonia, unspecified organism; J96.20 Acute and chronic respiratory failure, unspecified whether with hypoxia or hypercapnia; G92 Toxic encephalopathy; N17.0 Acute kidney failure with tubular necrosis; R65.20 Severe sepsis without septic shock; T82.7XXA Infection and inflammatory reaction due to other cardiac and vascular devices, implants and grafts, initial encounter; N39.0 Urinary tract infection, site not specified; E87.0 Hyperosmolality and hypernatremia; E87.4 Mixed disorder of acid-base balance; Z43.1 Encounter for attention to gastrostomy; M84.48XA Pathological fracture, other site, initial encounter for fracture; F10.10 Alcohol abuse, uncomplicated; Z93.0 Tracheostomy status; R13.10 Dysphagia, unspecified; Z78.1 Physical restraint status; R46.89 Other symptoms and signs involving appearance and behavior; Z59.0 Homelessness; B35.3 Tinea pedis; R19.7 Diarrhea, unspecified
CPT/HCPCS: 36600; 71045; 71250; 74176; 74230; 78806; 80048; 80053; 80069; 80164; 80202; 81001; 81003; 82043; 82270; 82306; 82607; 82803; 82962; 83036; 83605; 83735; 83935; 84100; 84155; 84300; 84425; 84443; 84630; 85025; 85610; 85730; 87040-91; 87045; 87070; 87075; 87081; 87086; 87177; 92507; 92523; 92526; 92610; 92611; 93005; 93306; 93971; 97110; 97162; 97530; 99217